=== PATIENT | male | born 1965 | race Two or more races ===

== ENCOUNTER 2020-10-25 11:20 | Outpatient (REF) | payer OTHER, SELFPAY ==
[2020-10-25 12:32] LABS: MANUAL DIFF FLAG NO
[2020-10-25 12:42] LABS: Basophils Percent Auto 0.5 % (0-2); Eosinophils Absolute Auto 0.4 X10*3/uL (0.0-0.4); Eosinophils Percent Auto 5.7 % (0-4); Hematocrit 42.3 % (42-52); Hemoglobin 14.4 g/dl (14.0-18.0); Imm Gran Abs Auto 0.01 X10*3/uL (0.00-0.03); Imm Gran Pct Auto 0.2 % (0.0-0.4); Lymphocytes Absolute Auto 2.7 X10*3/uL (1.2-4.9); Lymphocytes Percent Auto 41.7 % (20-40); Mean Corpuscular Hemoglobin 30.1 pg (27.0-33.0); Mean Corpuscular Volume 88.3 fL (80-98); Mean Platelet Volume 11.4 fL (9.4-12.4); Monocytes Absolute Auto 0.6 X10*3/uL (0.1-1.2); Monocytes Percent Auto 8.8 % (2-11); Neutrophils Absolute Auto 2.8 X10*3/uL (2.0-8.3); Neutrophils Percent Auto 43.1 % (45-73); Platelet Count 266 X10*3/uL (160-400); Red Blood Count 4.79 X10*6/uL (4.60-5.80); Red Cell Distribution Width 13.5 % (11.0-16.0); White Blood Count 6.5 X10*3/uL (4.8-10.8)
[2020-10-25 13:12] LABS: Alanine Aminotransferase 17 U/L (0-40); Albumin Level 3.9 g/dL (3.5-5.0); Alkaline Phosphatase 64 U/L (39-117); Anion Gap 11 (12-20); Aspartate Amino Transferase 14 U/L (5-37); Bilirubin Total 0.5 mg/dL (0.0-1.0); Blood Urea Nitrogen 16 mg/dL (9-16); Calcium 8.9 mg/dL (8.4-10.2); Carbon Dioxide 30 mmol/L (22-29); Chloride 101 mmol/L (96-108); Cholesterol 142 mg/dL; Estimated Glomerular Filt Rate > 60; Glucose Fasting 108 mg/dL (60-99); HDL Cholesterol 46 mg/dL; LDL Cholesterol Calculated 80 mg/dl; Potassium 4.7 mmol/l (3.3-5.1); Sodium 137 mmol/L (135-145); Total Protein 6.9 g/dL (6.5-8.0); Triglycerides 82 mg/dL
[2020-10-25 13:18] LABS: Estimated Average Glucose 134 mg/dL; Hemoglobin A1c % 6.3 %
[2020-10-25 13:34] LABS: Prostate Specific Antigen 2.87 ng/mL (<0.05-4.0)
== END 2020-10-25 11:21 | disposition home or self-care (01) ==
LOC: HO.LAB 11:20
PROVIDERS: PCP Physician Assistant; Visit Provider Physician Assistant
DX: Z12.5 Encounter for screening for malignant neoplasm of prostate (principal); E11.9 Type 2 diabetes mellitus without complications; I10 Essential (primary) hypertension
CPT/HCPCS: 36415; 80053; 80061; 83036; 84153; 85025

== ENCOUNTER 2021-10-10 11:18 | Outpatient (REF) | payer OTHER, SELFPAY ==
[2021-10-10 12:15] LABS: Hematocrit 43.9 % (42.0-52.0); Hemoglobin 14.8 g/dl (14.0-18.0); Mean Corpuscular HGB Conc 33.7 g/dl (31.0-36.0); Mean Corpuscular Hemoglobin 29.4 pg (27.0-33.0); Mean Corpuscular Volume 87.3 fL (80.0-98.0); Mean Platelet Volume 11.2 fL (9.4-12.4); Platelet Count 266 X10*3/uL (160-400); Red Blood Count 5.03 X10*6/uL (4.60-5.80); Red Cell Distribution Width 13.7 % (11.0-16.0); White Blood Count 6.6 X10*3/uL (4.8-10.8)
[2021-10-10 12:51] LABS: Estimated Average Glucose 140 mg/dL; Hemoglobin A1c % 6.5 %
[2021-10-10 12:57] LABS: Creatinine Urine 105.77 mg/dL; Microalbumin Urine < 5.0 mg/L
[2021-10-10 13:00] LABS: Alanine Aminotransferase 22 U/L (0-40); Albumin Level 4.4 g/dL (3.5-5.0); Alkaline Phosphatase 71 U/L (39-117); Anion Gap 9 (12-20); Aspartate Amino Transferase 17 U/L (5-37); Blood Urea Nitrogen 16 mg/dL (9-16); Calcium 9.9 mg/dL (8.4-10.2); Carbon Dioxide 29 mmol/L (22-29); Chloride 104 mmol/L (96-108); Cholesterol 160 mg/dL; Estimated Glomerular Filt Rate > 60; Glucose Fasting 113 mg/dL (60-99); HDL Cholesterol 43 mg/dL; LDL Cholesterol Calculated 104 mg/dl; Potassium 4.4 mmol/L (3.3-5.1); Sodium 138 mmol/L (135-145); Total Protein 7.6 g/dL (6.5-8.0); Triglycerides 69 mg/dL
[2021-10-10 13:18] LABS: Prostate Specific Antigen Scr 2.51 ng/mL (<0.05-4.0); TSH reflex Free T4 0.97 uIU/mL (0.32-4.0)
== END 2021-10-10 11:19 | disposition home or self-care (01) ==
LOC: HO.LAB 11:18
PROVIDERS: PCP Physician Assistant; Visit Provider Physician Assistant
DX: Z12.5 Encounter for screening for malignant neoplasm of prostate (principal); I10 Essential (primary) hypertension; E11.9 Type 2 diabetes mellitus without complications
CPT/HCPCS: 36415; 80053; 80061; 82043; 83036; 84153; 84443; 85027

== ENCOUNTER 2023-06-14 15:01 | Outpatient (AMB) | payer OTHER, SELFPAY ==
[2023-06-14 15:02] VITALS: BP 130/82; PULSE 88; O2SAT 97; BMI 27.8
--- NOTE | 2023-06-14 15:02 | MHC.PC.OV ---
Vital Signs 06/14/23 15:02 Height 5 ft 8 in Weight 183 lb BMI 27.8 BP 130/82 Blood Pressure Location Lt brachial Position Sitting Pulse 88 Pulse Source Pulse Oximeter Pulse Oximetry (%) 97 Oxygen Delivery Method Room Air Intake Visit Reasons: 6m follow up Court Attendant Required: Yes Accompanied by: Self / Same As Patient Allergies acetaminophen [From Tylenol] Allergy (Severe, Verified 06/14/23 15:15) RASH,DIZZINESS aspirin [Aspirin] Allergy (Intermediate, Verified 06/14/23 15:15) RASH dextromethorphan [From NyQuil] Allergy (Unknown, Verified 06/14/23 15:15) Unknown doxylamine [From NyQuil] Allergy (Unknown, Verified 06/14/23 15:15) Unknown pseudoephedrine [From SUDAFED] Allergy (Unknown, Verified 06/14/23 15:15) UNKNOWN MEDICATION DYES Allergy (Unknown, Uncoded 12/02/22 16:03) Unknown Medication List - Last Reconciled 06/14/23 by Anthony Ann PA-C acetic acid 2% 4 drps otic (ear) left TID 30 days cholecalciferol (vitamin D3) (Vitamin D3) 25 mcg PO DAILY diclofenac sodium 1% (Arthritis Pain (diclofenac)) 2 grams topical QID PRN ibuprofen 600 mg PO TID PRN 10 days ketoconazole 2% 1 appl topical DAILY 30 days losartan 50 mg PO DAILY metformin 1,000 mg PO BID 90 days tizanidine 2 mg PO BEDTIME PRN triamcinolone acetonide 0.1% 1 appl topical DAILY 30 days Tobacco use date assessed: 06/14/23 Dental Screening Dental Screen Date: 06/14/23 Did you have a dental visit in the last 12 months?: No Did you have a dental problem in the last 6 months where you did not have access to dental care?: No Was dental information given to patient?: No HPI 6m follow up HPI Details Patient is a 57-year-old male here today for follow-up visit. Patient has a past medical history significant for hypertension, type 2 diabetes, sensorineural hearing loss. Concerns-> reports over the last 2 months having issues with sleep due to getting up at night 3-4 times having to urinate. He believes is due to his diabetic medications though denies being very any polydipsia. A1c stable. More likely related to enlarging and prostate thus will start tamsulosin. Will check PSA to evaluate for elevation. Hypertension: Blood pressure acceptable today in office, patient denies any chest discomfort, dizziness, vision issues or headaches. Type 2 diabetes: Patient continues on metformin a 1000 b.i.d. and A1c is stable at 6.4. [facility] Surgical History History of inguinal hernia repair Family History Father Lung cancer Mother No problems noted. Family/Other Arthritis Hypertension Brother No problems noted. Daughter No problems noted. Sister No problems noted. Social History Housing: House Alcohol intake: never Patient Tobacco Use Status: Never used Tobacco e-Cigarette/Vaping Use: Never Used Second Hand Smoke Exposure: No Current occupational status: employed Current occupational exposures/hazards: No Cognitive needs: No Hearing needs: No Vision needs: No Questionnaire PHQ-9 Over the last 2 weeks, how often have you been bothered by any of the following problems? 1. Little interest or pleasure in doing things: not at all 2. Feeling down, depressed, or hopeless: not at all 3. Trouble falling or staying asleep, or sleeping too much: not at all 4. Feeling tired or having little energy: not at all 5. Poor appetite or overeating: not at all 6. Feeling bad about yourself - or that you are a failure or have let yourself or your family down: not at all 7. Trouble concentrating on things, such as reading the newspaper or watching television: not at all 8. Moving or speaking so slowly that other people could have noticed. Or the opposite - being so fidgety or restless that you have been moving around a lot more than usual: not at all 9. Thoughts that you would be better off or of hurting yourself in some way: not at all Total score: 0 Depression Screening Interpretation: Negative 61425 - PHQ-9 Billing: Yes Source: Developed by Drs. Naeem Mckeon, Peace Priest, Hasmukh Veras and colleagues, with an educational sarah from [employer]. Thrive Questionnaire Date Thrive assessed: 06/14/23 I am a: Patient What is your living situation today?: I have a steady place to live Within the past 12 months, did the food you bought not last and you didn't have the money to get more?: Never true Within the past 12 months, did you worry whether your food would run out before you got money to buy more?: Never true Do you have trouble paying for medicines?: No Do you have trouble getting transportation to medical appointments?: No Do you have trouble paying your heating and electricity bill?: No Do you have trouble taking care of your child, family member or friend?: No Do you have trouble with day-to-day activities such as bathing, preparing meals, shopping, managing finances, etc.?: No Are you currently unemployed and looking for a job?: No Are you interested in more education?: No Please select the resources that you would like help with: None Currently or been in a relationship where the following occur: no concerns reported AUDIT C Alcohol Use Questionnaire (AUDIT-C) 1. How often do you have a drink containing alcohol?: Never 3. How often do you have six or more drinks on one occasion?: Never Total Score: 0 KEL-7 AMB Questionnaire KEL-7 Date KEL - 7 assessed: 06/14/23 Feeling nervous, anxious, or on edge: 0 = Not at all Not being able to stop or control worryin = Not at all Worrying too much about different things: 0 = Not at all Trouble relaxin = Not at all Being so restless that it is hard to sit still: 0 = Not at all Becoming easily annoyed or irritable: 0 = Not at all Feeling afraid as if something awful might happen: 0 = Not at all Total KEL-7 score (0-4 normal; 5-9 mild; 10-14 moderate; 15-21 severe): 0 Source: Developed by Drs. Naeem Mckeon, Peace Priest, Hasmukh Veras and colleagues, with an educational sarah from [employer]. KEL-7 Assessment Billing KEL-7 Assessment Tool: KEL-7 Assessment 30762 Review of Systems Const Denies headache(s) Eyes Denies loss of vision ENT Denies vertigo, Denies dizziness, Denies headache(s) and Denies sore throat Card Denies chest pain, Denies leg edema and Denies lightheadedness Resp Denies cough, Denies hemoptysis and Denies wheezing GI Denies abdominal pain, Denies melena, Denies constipation, Denies diarrhea and Denies vomiting Denies dysuria, Denies urinary frequency and Denies urinary urgency Musc Denies arthralgias, Denies joint swelling, Denies numbness and Denies tingling Neuro Denies Abnormal speech present, Denies behavioral changes, Denies vertigo, Denies dizziness, Denies headache(s), Denies loss of vision, Denies memory loss, Denies numbness and Denies tingling Psych Denies anxiety, Denies behavioral changes, Denies depression, Denies memory loss and Denies panic attacks Kd/Lymph Denies easy bleeding and Denies easy bruising Aller/Immun Denies wheezing Physical exam (Primary Care) Vital Signs: Last Vital Signs Pulse 88 06/14/23 15:02 BP 130/82 06/14/23 15:02 Pulse Ox 97 06/14/23 15:02 Oxygen Delivery Method Room Air 06/14/23 15:02 BMI result Body Mass Index 27.8 Tobacco/Smoking Status: Tobacco use Status Tobacco use date assessed 06/14/23 06/14/23 15:11 Patient Tobacco Use Status Never used Tobacco 06/14/23 15:11 Tobacco use type 01/13/22 15:12 e-Cigarette/Vaping Use Never Used 06/14/23 15:11 PHQ-9: PHQ-9 Score PHQ-9: Total score 0 06/14/23 15:25 Depression Screening Interpretation: Negative Thrive Assessment: Date of Thrive Assessment Date Thrive assessed 06/14/23 06/14/23 15:11 Currently or been in a relationship where the following occur: no concerns reported Const General: healthy appearing, no acute distress, alert and awake Nutritional Appearance: well nourished Orientation/consciousness: oriented to person, oriented to place and oriented to time HENMT Ears: TM's normal bilaterally General nose exam: Normal nasal mucous membranes and turbinates present Eyes Conjunctivae: conjunctivae normal Sclerae: sclerae normal Pupils: Equal, round and reactive pupils present Neck Neck: Yes no lymphadenopathy and Yes no JVD Thyroid: Thyroid normal Carotids: no bruits Resp Effort & Inspection: normal respiratory effort and not tachypneic Auscultation: no crackles, no rales, no rhonchi and no wheezes Cardio Rate: regular rate Rhythm: regular rhythm Heart sounds: no murmurs and normal S1 and S2 GI Palpation (GI): Soft to palpation, nontender, no hepatomegaly and no splenomegaly Auscultation: normal bowel sounds Skin General skin exam: no rashes or lesions noted and dry skin Neuro General: oriented to person, oriented to place and oriented to time Cranial nerves: Yes Equal, round and reactive pupils present Speech: No Abnormal speech present Gait exam (Neuro): Normal gait present Motor exam (neuro): no tremor noted Extrem Right upper extremity: full ROM Left upper extremity: full ROM Right lower extremity: full ROM; no edema Left lower extremity: full ROM; no edema Psych Mental Status: mental status grossly normal Speech and movement: Normal speech and movement present Affect: normal affect Attitude: cooperative Thought process: Normal thought process present Results AMB Hemoglobin A1c AMB Hemoglobin A1c 6.4 % Last Edit by Roosevelt Snow on 06/14/23 15:26 Results Reviewed Results Reviewed: Laboratory Last Values Hgb A1c (Clinic) 6.4 % (4.0-6.0) H 06/14/23 15:05 Assessment and Plan Assessment & Plan (1) HTN (hypertension): Code(s): I10 - Essential (primary) hypertension Qualifiers: Hypertension type: essential hypertension Qualified Code(s): I10 - Essential (primary) hypertension Plan: Blood pressure acceptable today in office, will continue his current dose of antihypertensive medication with goal blood pressure to be below 140/90 (2) DMII (diabetes mellitus, type 2): Code(s): E11.9 - Type 2 diabetes mellitus without complications Qualifiers: Diabetes mellitus complication status: without complication 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 Will try to reestablish care with an executive coach for an eye exam. Goal A1c is to remain below 7.0 (3) BPH associated with nocturia: Code(s): N40.1 - Benign prostatic hyperplasia with lower urinary tract symptoms; R35.1 - Nocturia Plan: Patient reporting nocturia likely secondary to BPH. Will supply patient with Flomax to help empty bladder and reduce nocturia. Will consider finasteride if not effective. Will check a PSA at next lab draw. (4) Tinea: Code(s): B35.9 - Dermatophytosis, unspecified Plan: Reports having an itchy rash in his groin and will supply patient with antifungal topical treatment. Orders: Orders AMB Hemoglobin A1c 06/14/23 E11.9 - Type 2 diabetes mellitus without complications Referrals Ophthalmology Referral E11.9 - Type 2 diabetes mellitus without complications Medications: New tamsulosin 0.4 mg PO DAILY 90 days 90 caps 1RF N40.1 - Benign prostatic hyperplasia with lower urinary tract symptoms, R35.1 - Nocturia Refilled ketoconazole 2% 1 appl topical DAILY 30 days 60 grams 0RF B35.9 - Dermatophytosis, unspecified Coding Level of Care Code Est Pt Level 4 (67422) Diagnoses HTN (hypertension) I10 Hypertension type: essential hypertension DMII (diabetes mellitus, type 2) E11.9 Diabetes mellitus complication status: without complication 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
== END 2023-06-14 15:33 | disposition home or self-care (01) ==
PROVIDERS: PCP Physician Assistant; Visit Provider Physician Assistant
DX: I10 Essential (primary) hypertension (principal); E11.9 Type 2 diabetes mellitus without complications; N40.1 Benign prostatic hyperplasia with lower urinary tract symptoms; R35.1 Nocturia; B35.9 Dermatophytosis, unspecified
CPT/HCPCS: 83036; 99214

== ENCOUNTER 2023-07-17 12:23 | Outpatient (AMB) | payer OTHER, SELFPAY ==
--- NOTE | 2023-07-17 14:18 | AM.OFFWIN_ITS ---
Intake Vital Signs 07/17/23 14:18 Height 5 ft 8 in Intake Visit Reasons: EP LT ear Concern Intake Note: pt is here for c/o bilateral ear itchiness Patient Tobacco Use Status: Never used Tobacco Allergies acetaminophen [From Tylenol] Allergy (Severe, Verified 07/17/23 14:26) RASH,DIZZINESS aspirin [Aspirin] Allergy (Intermediate, Verified 07/17/23 14:26) RASH dextromethorphan [From NyQuil] Allergy (Unknown, Verified 07/17/23 14:26) Unknown doxylamine [From NyQuil] Allergy (Unknown, Verified 07/17/23 14:26) Unknown pseudoephedrine [From SUDAFED] Allergy (Unknown, Verified 07/17/23 14:26) UNKNOWN MEDICATION DYES Allergy (Unknown, Uncoded 12/02/22 16:03) Unknown Do you need a note to return to daycare/school/sports/work: No HPI EP LT ear Concern HPI Details Patient is a 58-year-old male comes to the walk-in clinic complaining of itchy ears, left greater than right. He states that he has had this in the past and he needed his ear wax irrigated to resolve his symptoms. He denies recent cold or allergies, fever or chills, hearing difficulty, discharge from the ear, nausea vomiting or diarrhea, runny nose or sore throat, dizziness or headache, or other significant associated symptoms. Reviewed past medical history with the patient [facility] Surgical History History of inguinal hernia repair Family History Father Lung cancer Mother No problems noted. Family/Other Arthritis Hypertension Brother No problems noted. Daughter No problems noted. Sister No problems noted. Social History Housing: House Alcohol intake: never Patient Tobacco Use Status: Never used Tobacco e-Cigarette/Vaping Use: Never Used Second Hand Smoke Exposure: No Current occupational status: employed Current occupational exposures/hazards: No Cognitive needs: No Hearing needs: No Vision needs: No Review of Systems Const All systems reviewed & are unremarkable except as noted in HPI and below Physical Exam Const General: cooperative, healthy appearing, comfortable, no acute distress, alert, awake, Physically active and well groomed; No anxious, diaphoretic, ill appearing, intoxicated appearing, poor hygiene or tired appearing Nutritional Appearance: average body habitus Limitations: no limitations HEENT Head: Yes normal to inspection, Yes normocephalic and Yes atraumatic Ears: hearing grossly normal bilaterally, Abnormal EAC present excessive cerumen (Not impacted) and TM abnormal dull and wth effusion; not bulging and not erythematous General nose exam: Normal external nose present, Normal nares present, No nasal polyps present, Normal nasal mucous membranes and turbinates present, Normal septum present and No nasal discharge present Face and sinus: Yes normal facial exam, Yes sinuses nontender and Yes face symmetric Resp Effort & Inspection: normal respiratory effort Cardio Rate: regular rate Rhythm: regular rhythm Skin Other: Good color, warm and dry Psych Appearance: grossly normal Mental Status: mental status grossly normal Speech and movement: Normal speech and movement present Affect: normal affect Attitude: cooperative Thought process: Normal thought process present Insight: Good insight present (Psych) Judgement: Good judgement present (Psych) Office Procedures Cerumen Removal From which ear canal was the cerumen removed: bilateral Removal: irrigation and otoscope w/curette Notes: patient tolerated procedure well, no complications (Nausea and retching, but patient requested completing procedure) and ear canal clear [id number] Wax Removal by Spoon/Curette Assessment & Plan Assessment & Plan (1) Otitis externa: Code(s): H60.90 - Unspecified otitis externa, unspecified ear Plan: Patient with moderate cerumen to the bilateral ear canals, which he apparently is very sensitive to. His ear canals were irrigated today per her his request, which helped to relieve some of his symptoms, however he did not tolerate the procedure well and he became nauseous with some retching. He did state that he was pleased to have the ears irrigated as this had resolved his itchy ear canals in the past. He did have some serous otitis, and we discussed oral allergy medication, however he apparently has an allergy listed for this class of medication. He does not have any erythema or TM changes suggesting otitis media at this time, but he will monitor for fever or chills, ear pain, or other significant associated symptoms. He will follow-up as needed. Coding Level of Care Code Est Pt Level 4 (31635) Diagnoses Otitis externa H60.90 CPT Codes Office Procedure - CPT: 22714-Bgj Wax Removal by Spoon/Curette ([id number])
== END 2023-07-17 15:34 | disposition home or self-care (01) ==
PROVIDERS: PCP Physician Assistant; Visit Provider Physician Assistant Medical
DX: H60.93 Unspecified otitis externa, bilateral (principal); H61.23 Impacted cerumen, bilateral
CPT/HCPCS: 69210; 99051; 99214

== ENCOUNTER 2023-12-15 14:08 | Outpatient (AMB) | payer OTHER, SELFPAY ==
[2023-12-15 14:26] VITALS: BP 138/84; PULSE 90; O2SAT 97; BMI 27.9
--- NOTE | 2023-12-15 14:26 | A.OFFPC_ITS ---
Vital Signs 12/15/23 14:26 Height 5 ft 8 in Weight 183 lb 4 oz BMI 27.9 BP 138/84 Blood Pressure Location Lt brachial Position Sitting Pulse 90 Pulse Source Pulse Oximeter Pulse Oximetry (%) 97 Oxygen Delivery Method Room Air Intake Visit Reasons: PE Intake Note: The patient is present today for a physical examination. The patient's current concern is bilateral ear itching and hearing loss, and they are requesting a referral ENT. Card Mounter Required: No Accompanied by: Self / Same As Patient Allergies acetaminophen [From Tylenol] Allergy (Severe, Verified 12/15/23 14:41) RASH,DIZZINESS aspirin [Aspirin] Allergy (Intermediate, Verified 12/15/23 14:41) RASH dextromethorphan [From NyQuil] Allergy (Unknown, Verified 12/15/23 14:41) Unknown doxylamine [From NyQuil] Allergy (Unknown, Verified 12/15/23 14:41) Unknown pseudoephedrine [From SUDAFED] Allergy (Unknown, Verified 12/15/23 14:41) UNKNOWN MEDICATION DYES Allergy (Unknown, Uncoded 12/15/23 14:37) Unknown Medication List - Last Reconciled 12/15/23 by Anthony Ann PA-C cholecalciferol (vitamin D3) (Vitamin D3) 25 mcg PO DAILY diclofenac sodium 1% (Arthritis Pain (diclofenac)) 2 grams topical QID PRN ibuprofen 600 mg PO TID PRN 10 days ketoconazole 2% 1 appl topical DAILY 30 days losartan 50 mg PO DAILY metformin 1,000 mg PO BID 90 days tamsulosin 0.4 mg PO DAILY 90 days tizanidine 2 mg PO BEDTIME PRN triamcinolone acetonide 0.1% 1 appl topical DAILY 30 days Tobacco use date assessed: 12/15/23 Dental Screening Dental Screen Date: 12/15/23 Did you have a dental visit in the last 12 months?: No Did you have a dental problem in the last 6 months where you did not have access to dental care?: Yes Was dental information given to patient?: Yes HPI PE HPI Details Patient is a 58-year-old male here today for follow-up visit. Patient has a past medical history significant for hypertension, type 2 diabetes, sensorineural hearing loss. Concerns-> has been suffering with erectile dysfunction and has been on Cialis in the past which have been helpful. He also reports he has been having decreased hearing in bilateral ears. Also having bilateral ear itch. Hypertension: Blood pressure acceptable today in office, patient denies any chest discomfort, dizziness, vision issues or headaches. Type 2 diabetes: Patient continues on metformin a 1000 b.i.d. and A1c is stable . .. Colon cancer screening: Had colonoscopy in 2013 normal, now willing to do Cologuard. Vaccines: Up-to-date with COVID vaccine, tetanus vaccine, declines flu and pneumonia vaccines. Laboratory Tests 10/10/21 07/13/22 12/02/22 11:33 16:08 15:49 Fasting Glucose 113 H Hemoglobin A1c % 6.5 Hgb A1c (Clinic) 6.4 H 6.3 H Cholesterol 160 LDL Cholesterol, C alc 104 06/14/23 12/15/23 15:05 14:17 Fasting Glucose Hemoglobin A1c % Hgb A1c (Clinic) 6.4 H 6.8 H Cholesterol LDL Cholesterol, C alc PFSH Surgical History History of inguinal hernia repair Family History Father Lung cancer Mother No problems noted. Family/Other Arthritis Hypertension Brother No problems noted. Daughter No problems noted. Sister No problems noted. Social History Housing: House Alcohol intake: never Patient Tobacco Use Status: Never used Tobacco e-Cigarette/Vaping Use: Never Used Second Hand Smoke Exposure: No Current occupational status: employed Current occupational exposures/hazards: No Cognitive needs: No Hearing needs: No Vision needs: No Questionnaire PHQ-9 Over the last 2 weeks, how often have you been bothered by any of the following problems? 1. Little interest or pleasure in doing things: not at all 2. Feeling down, depressed, or hopeless: not at all 3. Trouble falling or staying asleep, or sleeping too much: not at all 4. Feeling tired or having little energy: not at all 5. Poor appetite or overeating: not at all 6. Feeling bad about yourself - or that you are a failure or have let yourself or your family down: not at all 7. Trouble concentrating on things, such as reading the newspaper or watching television: not at all 8. Moving or speaking so slowly that other people could have noticed. Or the opposite - being so fidgety or restless that you have been moving around a lot more than usual: not at all 9. Thoughts that you would be better off or of hurting yourself in some way: not at all Total score: 0 Depression Screening Interpretation: Negative Depression Screening Done: Yes 64692 - PHQ-9 Billing: Yes Source: Developed by Drs. Naeem Mckeon, Peace Priest, Hasmukh Veras and colleagues, with an educational sarah from [place]. Thrive Questionnaire Date Thrive assessed: 12/15/23 I am a: Patient What is your living situation today?: I have a steady place to live Within the past 12 months, did the food you bought not last and you didn't have the money to get more?: Never true Within the past 12 months, did you worry whether your food would run out before you got money to buy more?: Never true Do you have trouble paying for medicines?: No Do you have trouble getting transportation to medical appointments?: No Do you have trouble paying your heating and electricity bill?: No Do you have trouble taking care of your child, family member or friend?: No Do you have trouble with day-to-day activities such as bathing, preparing meals, shopping, managing finances, etc.?: No Are you currently unemployed and looking for a job?: No Are you interested in more education?: No Please select the resources that you would like help with: None AUDIT C Alcohol Use Questionnaire (AUDIT-C) 1. How often do you have a drink containing alcohol?: Never 3. How often do you have six or more drinks on one occasion?: Never Total Score: 0 KEL-7 AMB Questionnaire KEL-7 Date KEL - 7 assessed: 12/15/23 Feeling nervous, anxious, or on edge: 0 = Not at all Not being able to stop or control worryin = Not at all Worrying too much about different things: 0 = Not at all Trouble relaxin = Not at all Being so restless that it is hard to sit still: 0 = Not at all Becoming easily annoyed or irritable: 0 = Not at all Feeling afraid as if something awful might happen: 0 = Not at all Total KEL-7 score (0-4 normal; 5-9 mild; 10-14 moderate; 15-21 severe): 0 Source: Developed by Drs. Naeem Mckeon, Peace Priest, Hasmukh Veras and colleagues, with an educational sarah from [place]. KEL-7 Assessment Billing KEL-7 Assessment Tool: KEL-7 Assessment 13229 Review of Systems Const Denies body aches, Denies chills, Denies excessive sweating, Denies fatigue, Denies fever(s) and Denies headache(s) Eyes Denies blurry vision ENT Denies dysphagia, Denies vertigo, Denies dizziness, Denies headache(s), Denies hearing loss and Denies tinnitus Card Denies chest pain, Denies chest pain with activity, Denies syncope, Denies i rregular heart rhythm and Denies dyspnea Resp Denies chest congestion, Denies cough, Denies hemoptysis, Denies dyspnea and Denies wheezing GI Denies abdominal pain, Denies melena, Denies hematochezia, Denies coffee ground emesis, Denies dysphagia, Denies diarrhea, Denies nausea and Denies vomiting Denies difficulty urinating, Denies dysuria, Denies urinary frequency, Denies urinary hesitancy and Denies urinary urgency Musc Denies arthralgias, Denies limited range of motion, Denies muscle cramps and Denies muscle weakness Skin/Breast Denies rash and Denies skin ulcer Neuro Denies Abnormal speech present, Denies confusion, Denies vertigo, Denies dizziness, Denies syncope, Denies headache(s), Denies memory loss and Denies seizure-like activity Psych Denies anxiety, Denies confusion, Denies depression, Denies memory loss, Denies panic attacks and Denies paranoia Endo Denies excessive sweating, Denies fatigue, Denies flushing, Denies polydipsia and Denies polyuria Aller/Immun Denies wheezing Physical exam (Primary Care) Vital Signs: Last Vital Signs Pulse 90 12/15/23 14:26 BP 138/84 12/15/23 14:26 Pulse Ox 97 12/15/23 14:26 Oxygen Delivery Method Room Air 12/15/23 14:26 BMI result Body Mass Index 27.9 Tobacco/Smoking Status: Tobacco use Status Tobacco use date assessed 12/15/23 12/15/23 14:38 Patient Tobacco Use Status Never used Tobacco 12/15/23 14:26 Tobacco use type 01/13/22 15:12 e-Cigarette/Vaping Use Never Used 12/15/23 14:26 PHQ-9: PHQ-9 Score PHQ-9: Total score 0 12/15/23 14:33 Depression Screening Interpretation: Negative Thrive Assessment: Date of Thrive Assessment Date Thrive assessed 12/15/23 12/15/23 14:33 Const General: cooperative, comfortable, no acute distress, alert and awake; No confusion Orientation/consciousness: oriented to person, oriented to place, patient oriented x3 and No confusion HENMT Head: Yes normocephalic Ears: external ears normal and TM's normal bilaterally Face and sinus: No sinus tenderness Mouth: Normal oral and palatal mucosa present and tongue normal Teeth and gingiva: dentition normal and gingiva normal Throat: Yes posterior oropharynx normal, Yes tonsils normal and Yes uvula midline Eyes Conjunctivae: conjunctivae normal Sclerae: sclerae normal Pupils: Equal, round and reactive pupils present EOM: EOMs intact bilaterally Direct Ophthalmoscopy: No no photophobia Neck Neck: Yes no lymphadenopathy, No tender and Yes no JVD Thyroid: Thyroid normal Carotids: no bruits Chest Chest palpation & inspection: no tenderness Resp Effort & Inspection: normal respiratory effort, no audible wheezes, not labored and no stridor Auscultation: no crackles, no rales, no rhonchi and no wheezes Cardio Jugular venous distension: no JVD Rate: regular rate, not bradycardic and not tachycardic Rhythm: regular rhythm Bruits: no carotid bruits Peripheral pulses: Peripheral pulses 2+ throughout GI Inspection: Yes normal to inspection, No abdominal wall ecchymosis and No visible herniation Palpation (GI): Soft to palpation, nontender, no guarding, not rigid and No hepatosplenomegaly present Auscultation: normoactive bowel sounds General: Yes no CVA tenderness Back/Spine/Pelvis Back: no CVA tenderness and No back tenderness Cervical Spine: cervical ROM normal Thoracic/Lumbar Spine: thoracic and lumbar spine normal to inspection, straight leg raise negative bilaterally, No thoraco-lumbar ROM limited and No lumbar spinal tenderness Skin Lesions: no lesions Rashes: no rashes Wounds: no wounds Neuro General: oriented to person, oriented to place, patient oriented x3, CN's II-XI intact bilaterally and No confusion Cranial nerves: Yes Equal, round and reactive pupils present and Yes Normal accommodation reflex present Cognition (Neuro): normal cognition Speech: No Abnormal speech present Gait exam (Neuro): Normal gait present Motor exam (neuro): 5/5 motor strength present throughout Extrem Right upper extremity: full ROM; no cyanosis Left upper extremity: full ROM; no cyanosis Right lower extremity: no edema Left lower extremity: no edema Psych Appearance: grossly normal Mental Status: mental status grossly normal Affect: normal affect Attitude: cooperative Thought process: Normal thought process present Results AMB Hemoglobin A1c AMB Hemoglobin A1c 6.8 % Last Edit by KATHYA Serrano on 12/15/23 14:39 Results Reviewed Results Reviewed: Laboratory Last Values Hgb A1c (Clinic) 6.8 % (4.0-6.0) H 12/15/23 14:17 Assessment and Plan Assessment & Plan (1) Annual physical exam: Code(s): Z00.00 - Encounter for general adult medical examination without abnormal findings (2) DMII (diabetes mellitus, type 2): Code(s): E11.9 - Type 2 diabetes mellitus without complications Qualifiers: Diabetes mellitus [employer] insulin use: without [employer] use Diabetes mellitus complication status: without complication Qualified Code(s): E11.9 - Type 2 diabetes mellitus without complications Plan: Patient's type 2 diabetes well controlled on current dose of metformin. Goal A1c is to remain below 7.0 (3) HTN (hypertension): Code(s): I10 - Essential (primary) hypertension Qualifiers: Hypertension type: essential hypertension Qualified Code(s): I10 - Essential (primary) hypertension Plan: Patient's blood pressure acceptable today in office. Will continue his current dose of antihypertensive medication with goal blood pressure remain below 140/90 (4) Sensorineural hearing loss (SNHL) of both ears: Code(s): H90.3 - Sensorineural hearing loss, bilateral Plan: Physical exam without any cerumen impactions. Has been having trouble hearing and differentiating voices. Will send for hearing exam (5) Erectile dysfunction: Code(s): N52.9 - Male erectile dysfunction, unspecified Qualifiers: Erectile dysfunction type: unspecified Qualified Code(s): N52.9 - Male erectile dysfunction, unspecified Plan: Patient reports he is intermittently having erectile dysfunction issues. He was on Cialis in the past which have been helpful. Orders: Orders AMB Hemoglobin A1c Today E11.9 - Type 2 diabetes mellitus without complications Prostate Specific Antigen Scr Today I10 - Essential (primary) hypertension, Z12.5 - Encounter for screening for malignant neoplasm of prostate Comprehensive [place]. Panel Fast Today I10 - Essential (primary) hypertension Lipid Panel Today E11.9 - Type 2 diabetes mellitus without complications Microalbumin, Random (w Creat) Today I10 - Essential (primary) hypertension Complete Blood Count no Diff Today E11.9 - Type 2 diabetes mellitus without complications Referrals Speech and Hearing Referral H90.3 - Sensorineural hearing loss, bilateral Cologuard Test N52.9 - Male erectile dysfunction, unspecified, Z12.11 - Encounter for screening for malignant neoplasm of colon Medications: New tadalafil (Cialis) 5 mg PO DAILY 7 days 7 tabs 0RF N52.9 - Male erectile dysfunction, unspecified Coding Level of Care Code Est Pt Prev Care 40-64y(26230) Diagnoses Annual physical exam Z00.00 Type 2 diabetes mellitus without complication, without long-term current use of insulin E11.9 Diabetes mellitus [employer] insulin use: without halfway use Diabetes mellitus complication status: without complication Essential hypertension I10 Hypertension type: essential hypertension Sensorineural hearing loss (SNHL) of both ears H90.3 Erectile dysfunction, unspecified erectile dysfunction type N52.9 Erectile dysfunction type: unspecified Additional Codes KEL-7 Assessment Billing - KEL-7 Assessment Tool: KLE-7 Assessment 44618 ([id number])
== END 2023-12-15 14:56 | disposition home or self-care (01) ==
PROVIDERS: PCP Physician Assistant; Visit Provider Physician Assistant
DX: Z00.00 Encounter for general adult medical examination without abnormal findings (principal); E11.9 Type 2 diabetes mellitus without complications; I10 Essential (primary) hypertension; H90.3 Sensorineural hearing loss, bilateral; N52.9 Male erectile dysfunction, unspecified
CPT/HCPCS: 83036; 99396

== ENCOUNTER 2024-04-27 14:12 | Outpatient (REF) | payer OTHER, SELFPAY | END 2024-04-27 14:13 | disposition home or self-care (01) | LOC: HO.SH 14:12 | PROVIDERS: Visit Provider Physician Assistant | DX: Z01.118 Encounter for examination of ears and hearing with other abnormal findings (principal); H90.3 Sensorineural hearing loss, bilateral | CPT/HCPCS: 92557; 92567 ==

== ENCOUNTER 2024-06-20 15:44 | Outpatient (AMB) | payer OTHER, SELFPAY ==
[2024-06-20 15:55] VITALS: BP 150/100; PULSE 80; O2SAT 98; BMI 27.5
--- NOTE | 2024-06-20 15:55 | A.OFFPC_ITS ---
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 Language: Wolof Accompanied by: Self / Same As Patient Allergies acetaminophen [From Tylenol] Allergy (Severe, Verified 06/20/24 16:00) RASH,DIZZINESS aspirin [Aspirin] Allergy (Intermediate, Verified 06/20/24 16:00) RASH dextromethorphan [From NyQuil] Allergy (Unknown, Verified 06/20/24 16:00) Unknown doxylamine [From NyQuil] Allergy (Unknown, Verified 06/20/24 16:00) Unknown pseudoephedrine [From SUDAFED] Allergy (Unknown, Verified 06/20/24 16:00) UNKNOWN MEDICATION DYES Allergy (Unknown, Uncoded 06/20/24 16:00) Unknown Medication List - Last Reconciled 06/20/24 by Anthony Ann PA-C cholecalciferol (vitamin D3) (Vitamin D3) 25 mcg PO DAILY diclofenac sodium 1% (Arthritis Pain (diclofenac)) 2 grams topical QID PRN ibuprofen 600 mg PO TID PRN 10 days ketoconazole 2% 1 appl topical DAILY 30 days losartan 50 mg PO DAILY metformin 1,000 mg PO BID 90 days tadalafil (Cialis) 5 mg PO DAILY 7 days tamsulosin 0.4 mg PO DAILY 90 days tizanidine 2 mg PO BEDTIME PRN triamcinolone acetonide 0.1% 1 appl topical DAILY 30 days Tobacco use date assessed: 12/15/23 Dental Screening Dental Screen Date: 12/15/23 HPI 6 month f/u HPI Details Patient is a 58-year-old male here today for follow-up visit. Patient has a past medical history significant for hypertension, type 2 diabetes, sensorineural hearing loss. Concerns-> reports having some epigastric pain and morning nausea over the last several days. He is not taking any antacid medications at this point. Hypertension: Blood pressure elevated today in office, he reports he is somewhat worried about getting his license and citizenship to the [place]. Otherwise he denies any chest discomfort, dizziness, vision issues or headaches. Type 2 diabetes: Patient continues on metformin a 1000 b.i.d. and A1c is stable . Advised to get fasting labs done OLU Laboratory Tests 07/13/22 06/14/23 12/15/23 16:08 15:05 14:17 Hgb A1c (Clinic) 6.4 H 6.4 H 6.8 H PFSH Surgical History History of inguinal hernia repair Family History Father Lung cancer Mother No problems noted. Family/Other Arthritis Hypertension Brother No problems noted. Daughter No problems noted. Sister No problems noted. Social History Housing: House Alcohol intake: never Patient Tobacco Use Status: Never used Tobacco e-Cigarette/Vaping Use: Never Used Second Hand Smoke Exposure: No Current occupational status: employed Current occupational exposures/hazards: No Cognitive needs: No Hearing needs: No Vision needs: No Questionnaire Thrive Questionnaire Date Thrive assessed: 12/15/23 KEL-7 AMB Questionnaire KEL-7 Date KEL - 7 assessed: 12/15/23 Source: Developed by Drs. Naeem Mckeon, Peace Priest, Hasmukh Veras and colleagues, with an educational sarah from [employer]. Review of Systems Const Denies headache(s) Eyes Denies loss of vision ENT Denies vertigo, Denies dizziness, Denies headache(s) and Denies sore throat Card Denies chest pain, Denies leg edema and Denies lightheadedness Resp Denies cough, Denies hemoptysis and Denies wheezing GI Denies abdominal pain, Denies melena, Denies constipation, Denies diarrhea and Denies vomiting Denies dysuria, Denies urinary frequency and Denies urinary urgency Musc Denies arthralgias, Denies joint swelling, Denies numbness and Denies tingling Neuro Denies Abnormal speech present, Denies behavioral changes, Denies vertigo, Denies dizziness, Denies headache(s), Denies loss of vision, Denies memory loss, Denies numbness and Denies tingling Psych Denies anxiety, Denies behavioral changes, Denies depression, Denies memory loss and Denies panic attacks Kd/Lymph Denies easy bleeding and Denies easy bruising Aller/Immun Denies wheezing Physical exam (Primary Care) Vital Signs: Last Vital Signs Pulse 80 06/20/24 15:55 BP 150/100 H 06/20/24 15:55 Pulse Ox 98 06/20/24 15:55 Oxygen Delivery Method Room Air 06/20/24 15:55 BMI result Body Mass Index 27.5 Tobacco/Smoking Status: Tobacco use Status Tobacco use date assessed 12/15/23 06/20/24 15:58 Patient Tobacco Use Status Never used Tobacco 06/20/24 15:58 Tobacco use type 01/13/22 15:12 e-Cigarette/Vaping Use Never Used 06/20/24 15:58 Thrive Assessment: Date of Thrive Assessment Date Thrive assessed 12/15/23 06/20/24 15:58 Const General: healthy appearing, no acute distress, alert and awake Nutritional Appearance: well nourished Orientation/consciousness: oriented to person, oriented to place and oriented to time HENMT Ears: TM's normal bilaterally General nose exam: Normal nasal mucous membranes and turbinates present Eyes Conjunctivae: conjunctivae normal Sclerae: sclerae normal Pupils: Equal, round and reactive pupils present Neck Neck: Yes no lymphadenopathy and Yes no JVD Thyroid: Thyroid normal Carotids: no bruits Resp Effort & Inspection: normal respiratory effort and not tachypneic Auscultation: no crackles, no rales, no rhonchi and no wheezes Cardio Rate: regular rate Rhythm: regular rhythm Heart sounds: no murmurs and normal S1 and S2 GI Palpation (GI): Soft to palpation, nontender, no hepatomegaly and no splenomegaly Auscultation: normal bowel sounds Skin General skin exam: no rashes or lesions noted and dry skin Neuro General: oriented to person, oriented to place and oriented to time Cranial nerves: Yes Equal, round and reactive pupils present Speech: No Abnormal speech present Gait exam (Neuro): Normal gait present Motor exam (neuro): no tremor noted Extrem Right upper extremity: full ROM Left upper extremity: full ROM Right lower extremity: full ROM; no edema Left lower extremity: full ROM; no edema Psych Mental Status: mental status grossly normal Speech and movement: Normal speech and movement present Affect: normal affect Attitude: cooperative Thought process: Normal thought process present Results AMB Hemoglobin A1c AMB Hemoglobin A1c 6.7 % Last Edit by KATHYA Serrano on 06/20/24 16:05 Results Reviewed Results Reviewed: Laboratory Last Values Hgb A1c (Clinic) 6.7 % (4.0-6.0) H 06/20/24 16:05 Assessment and Plan Assessment & Plan (1) GERD (gastroesophageal reflux disease): Code(s): K21.9 - Gastro-esophageal reflux disease without esophagitis Qualifiers: Esophagitis presence: without esophagitis Qualified Code(s): K21.9 - Gastro-esophageal reflux disease without esophagitis Plan: Patient's signs and symptoms of epigastric pain and morning nausea most consistent with GERD. Will supply patient with omeprazole to use to reduce acid production stomach. Advised on reducing gastric irritant foods. (2) KEL (generalized anxiety disorder): Code(s): F41.1 - Generalized anxiety disorder Plan: Patient reports he has been having a little more anxiety as of late as he has been trying to get his citizenship to the [place]. Of note he did have a period of psychosis after his mother that resulted in a few day hospitalization for his psych issue. He is not able to read or write Montenegrin and he is having difficulty with passing the citizenship exam. Needs paperwork filled out for citizenship. (3) DMII (diabetes mellitus, type 2): Code(s): E11.9 - Type 2 diabetes mellitus without complications Qualifiers: Diabetes mellitus complication status: without complication Diabetes mellitus jail insulin use: without jail use Qualified Code(s): E11.9 - Type 2 diabetes mellitus without complications Plan: Patient's type 2 diabetes well controlled on current dose of metformin. Goal A1c is to remain below 7.0 (4) HTN (hypertension): Code(s): I10 - Essential (primary) hypertension Qualifiers: Hypertension type: essential hypertension Qualified Code(s): I10 - Essential (primary) hypertension Plan: Patient's blood pressure slightly elevated today in office. 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 He admits that he is taking losartan on a daily basis. Will continue his current dose of antihypertensive medication with goal blood pressure remain below 140/90 (5) Sensorineural hearing loss (SNHL) of both ears: Code(s): H90.3 - Sensorineural hearing loss, bilateral Plan: Physical exam with cerumen buildup in both ears. Will have him back in 2 weeks to remove cerumen. He did get a hearing exam and reports he had abnormal findings. Orders: Orders AMB Hemoglobin A1c 06/20/24 E11.9 - Type 2 diabetes mellitus without complications Medications: New omeprazole 20 mg PO DAILY 30 caps 2RF 30 days K21.9 - Gastro-esophageal reflux disease without esophagitis Changed From losartan 50 mg PO DAILY 90 tabs 1RF I10 - Essential (primary) hypertension To losartan 50 mg PO DAILY 90 tabs 3RF 90 days I10 - Essential (primary) hypertension Refilled metformin 1,000 mg PO BID 180 tabs 3RF 90 days E11.9 - Type 2 diabetes mellitus without complications Patient Instructions: Goal: Blood pressure to be below 140/90, A1c to remain below 7.0 Barriers: Ability to write or read Montenegrin, Adherence to physical activity and healthy eating habits Coding Level of Care Code Est Pt Level 4 (37577) Diagnoses Gastroesophageal reflux disease without esophagitis K21.9 Esophagitis presence: without esophagitis KEL (generalized anxiety disorder) F41.1 Type 2 diabetes mellitus without complication, without long-term current use of insulin E11.9 Diabetes mellitus complication status: without complication Diabetes mellitus jail insulin use: without jail use Essential hypertension I10 Hypertension type: essential hypertension Sensorineural hearing loss (SNHL) of both ears H90.3
== END 2024-06-20 17:01 | disposition home or self-care (01) ==
PROVIDERS: PCP Physician Assistant; Visit Provider Physician Assistant
DX: E11.9 Type 2 diabetes mellitus without complications (principal)
CPT/HCPCS: 83036; 99214

== ENCOUNTER 2024-07-04 15:07 | Outpatient (AMB) | payer OTHER, SELFPAY ==
[2024-07-04 15:30] VITALS: BP 140/90; PULSE 80; O2SAT 99; BMI 27.5
--- NOTE | 2024-07-04 15:30 | MHC.PC.OV ---
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 Language: [place] Accompanied by: Self / Same As Patient Allergies acetaminophen [From Tylenol] Allergy (Severe, Verified 07/04/24 15:31) RASH,DIZZINESS aspirin [Aspirin] Allergy (Intermediate, Verified 07/04/24 15:31) RASH dextromethorphan [From NyQuil] Allergy (Unknown, Verified 07/04/24 15:31) Unknown doxylamine [From NyQuil] Allergy (Unknown, Verified 07/04/24 15:31) Unknown pseudoephedrine [From SUDAFED] Allergy (Unknown, Verified 07/04/24 15:31) UNKNOWN MEDICATION DYES Allergy (Unknown, Uncoded 07/04/24 15:31) Unknown Tobacco use date assessed: 12/15/23 Dental Screening Dental Screen Date: 12/15/23 HPI Ear Flush HPI Details Patient is a 58-year-old male here today for a right ear cerumen impaction. Patient underwent ear flushing and tolerate patient will. Large amounts of cerumen dislodged. Still seems to have hearing loss. Would likely benefit from a new hearing exam. [facility] Surgical History History of inguinal hernia repair Family History Father Lung cancer Mother No problems noted. Family/Other Arthritis Hypertension Brother No problems noted. Daughter No problems noted. Sister No problems noted. Social History Housing: House Alcohol intake: never Patient Tobacco Use Status: Never used Tobacco e-Cigarette/Vaping Use: Never Used Second Hand Smoke Exposure: No Current occupational status: employed Current occupational exposures/hazards: No Cognitive needs: No Hearing needs: No Vision needs: No Questionnaire Thrive Questionnaire Date Thrive assessed: 12/15/23 KEL-7 AMB Questionnaire KEL-7 Date KEL - 7 assessed: 12/15/23 Source: Developed by Uriel Reaveset B.W. Cem, Hasmukh Veras and colleagues, with an educational sarah from [employer]. Review of Systems Const Denies headache(s) Eyes Denies loss of vision ENT Denies vertigo, Denies dizziness, Denies headache(s) and Denies sore throat Card Denies chest pain, Denies leg edema and Denies lightheadedness Resp Denies cough, Denies hemoptysis and Denies wheezing GI Denies abdominal pain, Denies melena, Denies constipation, Denies diarrhea and Denies vomiting Denies dysuria, Denies urinary frequency and Denies urinary urgency Musc Denies arthralgias, Denies joint swelling, Denies numbness and Denies tingling Neuro Denies Abnormal speech present, Denies behavioral changes, Denies vertigo, Denies dizziness, Denies headache(s), Denies loss of vision, Denies memory loss, Denies numbness and Denies tingling Psych Denies anxiety, Denies behavioral changes, Denies depression, Denies memory loss and Denies panic attacks Kd/Lymph Denies easy bleeding and Denies easy bruising Aller/Immun Denies wheezing Physical exam (Primary Care) Vital Signs: Last Vital Signs Pulse 80 07/04/24 15:30 BP 140/90 H 07/04/24 15:30 Pulse Ox 99 07/04/24 15:30 Oxygen Delivery Method Room Air 07/04/24 15:30 BMI result Body Mass Index 27.5 Tobacco/Smoking Status: Tobacco use Status Tobacco use date assessed 12/15/23 07/04/24 15:31 Patient Tobacco Use Status Never used Tobacco 07/04/24 15:31 Tobacco use type 01/13/22 15:12 e-Cigarette/Vaping Use Never Used 07/04/24 15:31 Thrive Assessment: Date of Thrive Assessment Date Thrive assessed 12/15/23 07/04/24 15:31 Const General: healthy appearing, no acute distress, alert and awake Nutritional Appearance: well nourished Orientation/consciousness: oriented to person, oriented to place and oriented to time HENMT Other: RIGHT EXTERNAL CANAL: CERUMEN IMPACTION, AFTER LAVAGE CLEAR . Ears: TM's normal bilaterally General nose exam: Normal nasal mucous membranes and turbinates present Eyes Conjunctivae: conjunctivae normal Sclerae: sclerae normal Pupils: Equal, round and reactive pupils present Neck Neck: Yes no lymphadenopathy and Yes no JVD Thyroid: Thyroid normal Carotids: no bruits Resp Effort & Inspection: normal respiratory effort and not tachypneic Auscultation: no crackles, no rales, no rhonchi and no wheezes Cardio Rate: regular rate Rhythm: regular rhythm Heart sounds: no murmurs and normal S1 and S2 GI Palpation (GI): Soft to palpation, nontender, no hepatomegaly and no splenomegaly Auscultation: normal bowel sounds Skin General skin exam: no rashes or lesions noted and dry skin Neuro General: oriented to person, oriented to place and oriented to time Cranial nerves: Yes Equal, round and reactive pupils present Speech: No Abnormal speech present Gait exam (Neuro): Normal gait present Motor exam (neuro): no tremor noted Extrem Right upper extremity: full ROM Left upper extremity: full ROM Right lower extremity: full ROM; no edema Left lower extremity: full ROM; no edema Psych Mental Status: mental status grossly normal Speech and movement: Normal speech and movement present Affect: normal affect Attitude: cooperative Thought process: Normal thought process present Office Procedures Cerumen Removal From which ear canal was the cerumen removed: right Removal: irrigation and otoscope w/curette Notes: patient tolerated procedure well and no complications [id number] Wax Removal by Spoon/Curette Assessment and Plan Assessment & Plan (1) Right ear impacted cerumen: Code(s): H61.21 - Impacted cerumen, right ear Plan: As per office procedure did tolerate procedure well. (2) Sensorineural hearing loss (SNHL) of both ears: Code(s): H90.3 - Sensorineural hearing loss, bilateral Plan: Will send for another hearing exam to evaluate for any recurrent sensorineural hearing loss now that cerumen has been disimpacted from right ear. Orders: Referrals Speech and Hearing Referral H90.3 - Sensorineural hearing loss, bilateral Coding Level of Care Code Est Pt Level 3 (35222) Diagnoses Right ear impacted cerumen H61.21 Sensorineural hearing loss (SNHL) of both ears H90.3 CPT Codes Office Procedure - CPT: 06841-Dse Wax Removal by Spoon/Curette ([id number])
== END 2024-07-04 16:33 | disposition home or self-care (01) ==
PROVIDERS: PCP Physician Assistant; Visit Provider Physician Assistant
DX: H61.21 Impacted cerumen, right ear (principal)
CPT/HCPCS: 69210; 99213

== ENCOUNTER 2024-09-25 13:58 | Outpatient (AMB) | payer OTHER, SELFPAY ==
[2024-09-25 14:07] VITALS: BP 152/96; PULSE 88; O2SAT 98; BMI 28.7
--- NOTE | 2024-09-25 14:07 | A.OFFPC_ITS ---
Vital Signs 09/25/24 14:07 Height 5 ft 8 in Weight 188 lb 8 oz BMI 28.7 BP 152/96 H Blood Pressure Location Lt brachial Position Sitting Pulse 88 Pulse Source Pulse Oximeter Pulse Oximetry (%) 98 Oxygen Delivery Method Room Air Intake Visit Reasons: health concern Food Beverage Supervisor Required: Yes Food Beverage Supervisor Language: Greek Accompanied by: Self / Same As Patient Allergies acetaminophen [From Tylenol] Allergy (Severe, Verified 09/25/24 14:09) RASH,DIZZINESS aspirin [Aspirin] Allergy (Intermediate, Verified 09/25/24 14:09) RASH dextromethorphan [From NyQuil] Allergy (Unknown, Verified 09/25/24 14:09) Unknown doxylamine [From NyQuil] Allergy (Unknown, Verified 09/25/24 14:09) Unknown pseudoephedrine [From SUDAFED] Allergy (Unknown, Verified 09/25/24 14:09) UNKNOWN MEDICATION DYES Allergy (Unknown, Uncoded 09/25/24 14:09) Unknown Medication List - Last Reconciled 09/25/24 by Anthony Ann PA-C cholecalciferol (vitamin D3) (Vitamin D3) 25 mcg PO DAILY diclofenac sodium 1% (Arthritis Pain (diclofenac)) 2 grams topical QID PRN ibuprofen 600 mg PO TID PRN 10 days ketoconazole 2% 1 appl topical DAILY 30 days losartan 50 mg PO DAILY 90 days metformin 1,000 mg PO BID 90 days omeprazole 20 mg PO DAILY 30 days tadalafil (Cialis) 5 mg PO DAILY 7 days tamsulosin 0.4 mg PO DAILY 90 days tizanidine 2 mg PO BEDTIME PRN triamcinolone acetonide 0.1% 1 appl topical DAILY 30 days Tobacco use date assessed: 12/15/23 Dental Screening Dental Screen Date: 12/15/23 HPI health concern HPI Details Patient is a 58-year-old male here today for a problem visit. Patient has a past medical history significant for hypertension, type 2 diabetes, sensorineural hearing loss. Concerns-> he reports having a lot more nocturia as of late. Was on tamsulosin in the past though was not taking this medication as he has ran out from the pharmacy and has never called for refill. He does have a history of BPH. Advised to get fasting labs including PSA done before upcoming annual physical. Hypertension: Blood pressure elevated today in office, he has not been taking losartan 50 mg as he reports he could not get them from the pharmacy. He also reports there is a yellow dye in the tablets that caused him allergy. Will transition to lisinopril 10 mg. Advised to monitor blood pressure at Otherwise he denies any chest discomfort, dizziness, vision issues or headaches. Type 2 diabetes: Patient continues on metformin a 1000 b.i.d. and A1c is stable [facility] Surgical History History of inguinal hernia repair Family History Father Lung cancer Mother No problems noted. Family/Other Arthritis Hypertension Brother No problems noted. Daughter No problems noted. Sister No problems noted. Social History Housing: House Alcohol intake: never Patient Tobacco Use Status: Never used Tobacco e-Cigarette/Vaping Use: Never Used Second Hand Smoke Exposure: No Current occupational status: employed Current occupational exposures/hazards: No Cognitive needs: No Hearing needs: No Vision needs: No Questionnaire Thrive Questionnaire Date Thrive assessed: 12/15/23 KEL-7 AMB Questionnaire KEL-7 Date KEL - 7 assessed: 12/15/23 Source: Developed by Drs. Naeem Mckeon, Peace Priest, Hasmukh Veras and colleagues, with an educational sarah from [employer]. Review of Systems Const Denies headache(s) Eyes Denies loss of vision ENT Denies vertigo, Denies dizziness, Denies headache(s) and Denies sore throat Card Denies chest pain, Denies leg edema and Denies lightheadedness Resp Denies cough, Denies hemoptysis and Denies wheezing GI Denies abdominal pain, Denies melena, Denies constipation, Denies diarrhea and Denies vomiting Denies dysuria, Reports urinary frequency and Denies urinary urgency Musc Denies arthralgias, Denies joint swelling, Denies numbness and Denies tingling Neuro Denies Abnormal speech present, Denies behavioral changes, Denies vertigo, Denies dizziness, Denies headache(s), Denies loss of vision, Denies memory loss, Denies numbness and Denies tingling Psych Denies anxiety, Denies behavioral changes, Denies depression, Denies memory loss and Denies panic attacks Kd/Lymph Denies easy bleeding and Denies easy bruising Aller/Immun Denies wheezing Physical exam (Primary Care) Vital Signs: Last Vital Signs Pulse 88 09/25/24 14:07 BP 152/96 H 09/25/24 14:07 Pulse Ox 98 09/25/24 14:07 Oxygen Delivery Method Room Air 09/25/24 14:07 BMI result Body Mass Index 28.7 Tobacco/Smoking Status: Tobacco use Status Tobacco use date assessed 12/15/23 09/25/24 14:08 Patient Tobacco Use Status Never used Tobacco 09/25/24 14:08 Tobacco use type 01/13/22 15:12 e-Cigarette/Vaping Use Never Used 09/25/24 14:08 Thrive Assessment: Date of Thrive Assessment Date Thrive assessed 12/15/23 09/25/24 14:08 Const General: healthy appearing, no acute distress, alert and awake Nutritional Appearance: well nourished Orientation/consciousness: oriented to person, oriented to place and oriented to time HENMT Ears: TM's normal bilaterally General nose exam: Normal nasal mucous membranes and turbinates present Eyes Conjunctivae: conjunctivae normal Sclerae: sclerae normal Pupils: Equal, round and reactive pupils present Neck Neck: Yes no lymphadenopathy and Yes no JVD Thyroid: Thyroid normal Carotids: no bruits Resp Effort & Inspection: normal respiratory effort and not tachypneic Auscultation: no crackles, no rales, no rhonchi and no wheezes Cardio Rate: regular rate Rhythm: regular rhythm Heart sounds: no murmurs and normal S1 and S2 GI Palpation (GI): Soft to palpation, nontender, no hepatomegaly and no splenomegaly Auscultation: normal bowel sounds Skin General skin exam: no rashes or lesions noted and dry skin Neuro General: oriented to person, oriented to place and oriented to time Cranial nerves: Yes Equal, round and reactive pupils present Speech: No Abnormal speech present Gait exam (Neuro): Normal gait present Motor exam (neuro): no tremor noted Extrem Right upper extremity: full ROM Left upper extremity: full ROM Right lower extremity: full ROM; no edema Left lower extremity: full ROM; no edema Psych Mental Status: mental status grossly normal Speech and movement: Normal speech and movement present Affect: normal affect Attitude: cooperative Thought process: Normal thought process present Office Procedures Flu Questionnaire Does the patient have a severe egg allergy?: No Immunizations Fluarix Triv [id number] (PF) 45 mcg (15 mcg x 3)/0.5 mL IM syringe Performing Provider: Anthony Ann PA-C [place] [facility] [facility] Documented (not given) by: KATHYA Serrano on 09/25/24 14:08 Reason Not Given: Patient Refused Coding Level of Care Code Est Pt Level 4 (76452) Diagnoses Essential hypertension I10 Hypertension type: essential hypertension Urinary frequency R35.0 Type 2 diabetes mellitus without complication, without long-term current use of insulin E11.9 Diabetes mellitus complication status: without complication Diabetes mellitus shelter insulin use: without technician terminal and repeater use Assessment & Plan Assessment & Plan (1) HTN (hypertension): Code(s): I10 - Essential (primary) hypertension Category: Medical Qualifiers: Hypertension type: essential hypertension Qualified Code(s): I10 - Essential (primary) hypertension Plan: Patient's blood pressure elevated today in office. He has not been taking losartan as he reports they are yellow color and he has an allergy to yellow dye. Will transition him to lisinopril 10 mg. Advised to monitor blood pressure with goal blood pressure to be below 140/90 (2) Urinary frequency: Code(s): R35.0 - Frequency of micturition Category: Medical Plan: Patient reports some urinary frequency particularly nocturia. Has not been on Flomax for quite some time. Will restart Flomax and sent for urinalysis to evaluate for an infectious etiology. Patient has yet to do labs including his PSA and promises to do them before his upcoming physical in November of 2024 (3) DMII (diabetes mellitus, type 2): Code(s): E11.9 - Type 2 diabetes mellitus without complications Category: Medical Qualifiers: Diabetes mellitus complication status: without complication Diabetes mellitus shelter insulin use: without technician terminal and repeater use Qualified Code(s): E11.9 - Type 2 diabetes mellitus without complications Plan: Patient's type 2 diabetes fairly controlled with current dose of metformin a 1000 b.i.d.. Goal A1c is to be below 7.0 Orders: Orders AMB Hemoglobin A1c 09/25/24 E11.9 - Type 2 diabetes mellitus without complications UA CC w/rflx Micro + Cult 09/25/24 R30.0 - Dysuria, R35.0 - Frequency of micturition Prostate Specific Antigen Scr 09/25/24 R35.0 - Frequency of micturition, Z12.5 - Encounter for screening for malignant neoplasm of prostate Influenza [id number] Immunization 09/25/24 Z23 - Encounter for immunization Medications: New lisinopril 10 mg PO DAILY 90 tabs 1RF 90 days I10 - Essential (primary) hypertension Refilled tamsulosin 0.4 mg PO DAILY 90 caps 1RF 90 days N40.1 - Benign prostatic hyperplasia with lower urinary tract symptoms, R35.1 - Nocturia Discontinued tizanidine Discontinued Reason: Doctor's Order 2 mg PO BEDTIME PRN 7 tabs 0RF muscle spasticity M79.601 - Pain in right arm losartan Discontinued Reason: Doctor's Order 50 mg PO DAILY 90 days 90 tabs 3RF I10 - Essential (primary) hypertension Patient Instructions: Goal: Blood pressure to be below 140/90 Barriers: Adherence to physical activity and healthy eating habits
== END 2024-09-25 14:21 | disposition home or self-care (01) ==
LOC: HO.HMCH 13:59
PROVIDERS: PCP Physician Assistant; Visit Provider Physician Assistant
DX: E11.9 Type 2 diabetes mellitus without complications (principal); I10 Essential (primary) hypertension; R35.0 Frequency of micturition

== ENCOUNTER → 2024-09-25 13:58 | Outpatient (BNVA) | payer OTHER, SELFPAY | PROVIDERS: PCP Physician Assistant; Visit Provider Physician Assistant | DX: I10 Essential (primary) hypertension (principal); N40.1 Benign prostatic hyperplasia with lower urinary tract symptoms; R35.1 Nocturia; R35.0 Frequency of micturition; E11.9 Type 2 diabetes mellitus without complications; Z79.84 Long term (current) use of oral hypoglycemic drugs; Z79.899 Other long term (current) drug therapy; Z28.21 Immunization not carried out because of patient refusal | CPT/HCPCS: 90471 ==

== ENCOUNTER 2024-12-19 15:46 | Outpatient (AMB) | payer OTHER, SELFPAY ==
--- NOTE | 2024-12-19 15:50 | MHC.PC.OV ---
Vital Signs 12/19/24 15:52 Height 5 ft 8 in Weight 191 lb BMI 29.0 BP 132/86 Blood Pressure Location Lt brachial Position Sitting Pulse 70 Pulse Source Pulse Oximeter Pulse Oximetry (%) 98 Oxygen Delivery Method Room Air Intake Visit Reasons: annual exam Intake Note: Patient here for an annual physical exam Pressfitter Required: No Accompanied by: Self / Same As Patient Allergies acetaminophen [From Tylenol] Allergy (Severe, Verified 12/19/24 15:59) RASH,DIZZINESS aspirin [Aspirin] Allergy (Intermediate, Verified 12/19/24 15:59) RASH dextromethorphan [From NyQuil] Allergy (Unknown, Verified 12/19/24 15:59) Unknown doxylamine [From NyQuil] Allergy (Unknown, Verified 12/19/24 15:59) Unknown pseudoephedrine [From SUDAFED] Allergy (Unknown, Verified 12/19/24 15:59) UNKNOWN MEDICATION DYES Allergy (Unknown, Uncoded 12/19/24 15:59) Unknown Yellow dye Adverse Reaction (Intermediate, Uncoded 12/19/24 16:11) Rash Medication List - Last Reconciled 12/19/24 by Anthony Ann PA-C cholecalciferol (vitamin D3) (Vitamin D3) 25 mcg PO DAILY diclofenac sodium 1% (Arthritis Pain (diclofenac)) 2 grams topical QID PRN ibuprofen 600 mg PO TID PRN 10 days ketoconazole 2% 1 appl topical DAILY 30 days lisinopril 10 mg PO DAILY 90 days metformin 1,000 mg PO BID 90 days omeprazole 20 mg PO DAILY 30 days tadalafil (Cialis) 5 mg PO DAILY 7 days tamsulosin 0.4 mg PO DAILY 90 days triamcinolone acetonide 0.1% 1 appl topical DAILY 30 days Tobacco use date assessed: 12/19/24 Dental Screening Dental Screen Date: 12/19/24 Did you have a dental visit in the last 12 months?: No Did you have a dental problem in the last 6 months where you did not have access to dental care?: No Was dental information given to patient?: Patient has dentist HPI annual exam HPI Details Patient is a 59-year-old male here today for a routine annual physical. Patient has a past medical history significant for hypertension, type 2 diabetes, sensorineural hearing loss. Hypertension: Blood pressure appropriate today in office, he continues on lisinopril 10 mg with good effect. Advised to monitor blood pressure at Otherwise he denies any chest discomfort, dizziness, vision issues or headaches. Type 2 diabetes: Patient continues on metformin a 1000 b.i.d. and A1c is stable . Today's A1c is 6.4 .. BPH: Was started on tamsulosin most previous visit his nocturia has significantly improved. Again will check screening PSA on upcoming labs Colon cancer screening: Cologuard done in 2023 was negative. Vaccines: Up-to-date with COVID vaccine, tetanus vaccine, declines flu and pneumonia vaccines. [facility] Surgical History History of inguinal hernia repair Family History Father Lung cancer Mother No problems noted. Family/Other Arthritis Hypertension Brother No problems noted. Daughter No problems noted. Sister No problems noted. Social History Housing: House Alcohol intake: never Patient Tobacco Use Status: Never used Tobacco e-Cigarette/Vaping Use: Never Used Second Hand Smoke Exposure: No service: No Current occupational status: employed Current occupational exposures/hazards: No Cognitive needs: No Hearing needs: No Vision needs: No Questionnaire PHQ-9 Over the last 2 weeks, how often have you been bothered by any of the following problems? 1. Little interest or pleasure in doing things: not at all 2. Feeling down, depressed, or hopeless: not at all 3. Trouble falling or staying asleep, or sleeping too much: not at all 4. Feeling tired or having little energy: not at all 5. Poor appetite or overeating: not at all 6. Feeling bad about yourself - or that you are a failure or have let yourself or your family down: not at all 7. Trouble concentrating on things, such as reading the newspaper or watching television: not at all 8. Moving or speaking so slowly that other people could have noticed. Or the opposite - being so fidgety or restless that you have been moving around a lot more than usual: not at all 9. Thoughts that you would be better off or of hurting yourself in some way: not at all Total score: 0 Depression Screening Interpretation: Negative Depression Screening Done: Yes 31028 - PHQ-9 Billing: Yes Source: Developed by Drs. Naeem Mckeon, Hasmukh Krishna and colleagues, with an educational sarah from [employer]. Thrive Questionnaire Date Thrive assessed: 12/19/24 I am a: Patient What is your living situation today?: I have a steady place to live Within the past 12 months, did the food you bought not last and you didn't have the money to get more?: Never true Within the past 12 months, did you worry whether your food would run out before you got money to buy more?: Never true Do you have trouble paying for medicines?: No Do you have trouble getting transportation to medical appointments?: No Do you have trouble paying your heating and electricity bill?: No Do you have trouble taking care of your child, family member or friend?: No Do you have trouble with day-to-day activities such as bathing, preparing meals, shopping, managing finances, etc.?: No Are you currently unemployed and looking for a job?: No Are you interested in more education?: Yes Please select the resources that you would like help with: None Currently or been in a relationship where the following occur: No concerns reported THRIVE Score: 0 AUDIT C Alcohol Use Questionnaire (AUDIT-C) 1. How often do you have a drink containing alcohol?: Never Total Score: 0 KEL-7 AMB Questionnaire KEL-7 Date KEL - 7 assessed: 12/19/24 Feeling nervous, anxious, or on edge: 0 = Not at all Not being able to stop or control worryin = Not at all Worrying too much about different things: 0 = Not at all Trouble relaxin = Not at all Being so restless that it is hard to sit still: 0 = Not at all Becoming easily annoyed or irritable: 0 = Not at all Feeling afraid as if something awful might happen: 0 = Not at all Total KEL-7 score (0-4 normal; 5-9 mild; 10-14 moderate; 15-21 severe): 0 Source: Developed by Peace Reaves Kurt Kroenke and colleagues, with an educational sarah from [employer]. KEL-7 Assessment Billing KEL-7 Assessment Tool: KEL-7 Assessment 84391 Review of Systems Const Denies body aches, Denies chills, Denies excessive sweating, Denies fatigue, Denies fever(s) and Denies headache(s) Eyes Denies blurry vision ENT Denies dysphagia, Denies vertigo, Denies dizziness, Denies headache(s), Denies hearing loss and Denies tinnitus Card Denies chest pain, Denies chest pain with activity, Denies syncope, Denies irregular heart rhythm and Denies dyspnea Resp Denies chest congestion, Denies cough, Denies hemoptysis, Denies dyspnea and Denies wheezing GI Denies abdominal pain, Denies melena, Denies hematochezia, Denies coffee ground emesis, Denies dysphagia, Denies diarrhea, Denies nausea and Denies vomiting Denies difficulty urinating, Denies dysuria, Denies urinary frequency, Denies urinary hesitancy and Denies urinary urgency Musc Denies arthralgias, Denies limited range of motion, Denies muscle cramps and Denies muscle weakness Skin/Breast Denies rash and Denies skin ulcer Neuro Denies Abnormal speech present, Denies confusion, Denies vertigo, Denies dizziness, Denies syncope, Denies headache(s), Denies memory loss and Denies seizure-like activity Psych Denies anxiety, Denies confusion, Denies depression, Denies memory loss, Denies panic attacks and Denies paranoia Endo Denies excessive sweating, Denies fatigue, Denies flushing, Denies polydipsia and Denies polyuria Aller/Immun Denies wheezing Physical exam (Primary Care) Vital Signs: Last Vital Signs Pulse 70 12/19/24 15:52 BP 132/86 12/19/24 15:52 Pulse Ox 98 12/19/24 15:52 Oxygen Delivery Method Room Air 12/19/24 15:52 BMI result Body Mass Index 29.0 Tobacco/Smoking Status: Tobacco use Status Tobacco use date assessed 12/19/24 12/19/24 16:00 Patient Tobacco Use Status Never used Tobacco 12/19/24 15:50 Tobacco use type 01/13/22 15:12 e-Cigarette/Vaping Use Never Used 12/19/24 15:50 PHQ-9: PHQ-9 Score PHQ-9: Total score 0 12/19/24 16:11 Depression Screening Interpretation: Negative Thrive Assessment: Date of Thrive Assessment Date Thrive assessed 12/19/24 12/19/24 16:00 Currently or been in a relationship where the following occur: No concerns reported Const General: cooperative, comfortable, no acute distress, alert and awake; No confusion Orientation/consciousness: oriented to person, oriented to place, patient oriented x3 and No confusion HENMT Head: Yes normocephalic Ears: external ears normal and TM's normal bilaterally Face and sinus: No sinus tenderness Mouth: Normal oral and palatal mucosa present and tongue normal Teeth and gingiva: dentition normal and gingiva normal Throat: Yes posterior oropharynx normal, Yes tonsils normal and Yes uvula midline Eyes Conjunctivae: conjunctivae normal Sclerae: sclerae normal Pupils: Equal, round and reactive pupils present EOM: EOMs intact bilaterally Direct Ophthalmoscopy: No no photophobia Neck Neck: Yes no lymphadenopathy, No tender and Yes no JVD Thyroid: Thyroid normal Carotids: no bruits Chest Chest palpation & inspection: no tenderness Resp Effort & Inspection: normal respiratory effort, no audible wheezes, not labored and no stridor Auscultation: no crackles, no rales, no rhonchi and no wheezes Cardio Jugular venous distension: no JVD Rate: regular rate, not bradycardic and not tachycardic Rhythm: regular rhythm Bruits: no carotid bruits Peripheral pulses: Peripheral pulses 2+ throughout GI Inspection: Yes normal to inspection, No abdominal wall ecchymosis and No visible herniation Palpation (GI): Soft to palpation, nontender, no guarding, not rigid and No hepatosplenomegaly present Auscultation: normoactive bowel sounds General: Yes no CVA tenderness Back/Spine/Pelvis Back: no CVA tenderness and No back tenderness Cervical Spine: cervical ROM normal Thoracic/Lumbar Spine: thoracic and lumbar spine normal to inspection, straight leg raise negative bilaterally, No thoraco-lumbar ROM limited and No lumbar spinal tenderness Skin Lesions: no lesions Rashes: no rashes Wounds: no wounds Neuro General: oriented to person, oriented to place, patient oriented x3, CN's II-XI intact bilaterally and No confusion Cranial nerves: Yes Equal, round and reactive pupils present and Yes Normal accommodation reflex present Cognition (Neuro): normal cognition Speech: No Abnormal speech present Gait exam (Neuro): Normal gait present Motor exam (neuro): 5/5 motor strength present throughout Extrem Right upper extremity: full ROM; no cyanosis Left upper extremity: full ROM; no cyanosis Right lower extremity: no edema Left lower extremity: no edema Psych Appearance: grossly normal Mental Status: mental status grossly normal Affect: normal affect Attitude: cooperative Thought process: Normal thought process present Results AMB Hemoglobin A1c AMB Hemoglobin A1c 6.4 % Last Edit by MARINA Cr on 12/19/24 16:12 Results Reviewed Results Reviewed: Laboratory Last Values Hgb A1c (Clinic) 6.4 % (4.0-6.0) H 12/19/24 15:49 Coding Level of Care Code Est Pt Prev Care 40-64y(96029) Diagnoses Annual physical exam Z00.00 Type 2 diabetes mellitus without complication, without long-term current use of insulin E11.9 Diabetes mellitus complication status: without complication 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: without intermediate use BPH associated with nocturia N40.1; R35.1 Essential hypertension I10 Hypertension type: essential hypertension Additional Codes KEL-7 Assessment Billing - KEL-7 Assessment Tool: KEL-7 Assessment 89905 ([id number]) PHQ-9 - 96487 - PHQ-9 Billing: Yes ([id number]) Assessment & Plan Assessment & Plan (1) Annual physical exam: Code(s): Z00.00 - Encounter for general adult medical examination without abnormal findings Category: Medical Plan: As per HPI (2) DMII (diabetes mellitus, type 2): Code(s): E11.9 - Type 2 diabetes mellitus without complications Category: Medical Qualifiers: Diabetes mellitus complication status: without complication 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 Today's A1c is 6.4. Goal A1c is to remain below 6.5. (3) BPH associated with nocturia: Code(s): N40.1 - Benign prostatic hyperplasia with lower urinary tract symptoms; R35.1 - Nocturia Category: Medical Plan: Has been started on tamsulosin which has significantly improved his nocturia and urinary frequency. Will check his PSA (4) HTN (hypertension): Code(s): I10 - Essential (primary) hypertension Category: Medical Qualifiers: Hypertension type: essential hypertension Qualified Code(s): I10 - Essential (primary) hypertension Plan: Patient's blood pressure acceptable today in office. Will continue his current dose of lisinopril with goal blood pressure to remain below 140/90 Orders: Orders Microalbumin, Random (w Creat) 12/19/24 I10 - Essential (primary) hypertension Prostate Specific Antigen Scr 12/19/24 I10 - Essential (primary) hypertension, Z12.5 - Encounter for screening for malignant neoplasm of prostate Comprehensive [place]. Panel Fast 12/19/24 E11.9 - Type 2 diabetes mellitus without complications AMB Hemoglobin A1c 12/19/24 E11.9 - Type 2 diabetes mellitus without complications Complete Blood Count no Diff 12/19/24 E11.9 - Type 2 diabetes mellitus without complications Patient Instructions: Goal: A1c to remain below 6.5, goal LDL to be below 100, blood pressure to remain below 140/90 Barriers: Adherence to physical activity and healthy habits.
[2024-12-19 15:52] VITALS: BP 132/86; PULSE 70; O2SAT 98; BMI 29.0
--- OUTSIDE RECORDS SUMMARY | 2024-12-19 17:37 | XMS_ITS ---
Author Organization [facility] Address [address] [place] [id number] Care Team Providers Care Retail Training Manager Name Role Phone Anthony Ann Primary Care Provider Unavailab Naeem Govea Unavailable [phone] REASON FOR VISIT Pt no show Encounters Encounter Location Date Provider Diagnosis [facility] [address] [place] [id number] 03/29/2024 Naeem Meza PLAN OF TREATMENT No Information
--- OUTSIDE RECORDS SUMMARY | 2024-12-19 17:37 | XMS_ITS ---
Author Organization [facility] Address [address] [place] [address] Care Team Providers Care Larder Cook Name Role Phone Anthony Ann Primary Care Provider Unavailab Naeem Govea Unavailable [phone] REASON FOR VISIT new insurance? Encounters Encounter Location Date Provider Diagnosis [facility] [address] [place] [address] 03/01/2024 Naeem Meza PLAN OF TREATMENT No Information
--- OUTSIDE RECORDS SUMMARY | 2024-12-19 17:37 | XMS_ITS | Patient Health Record ---
Author Organization [facility] Address [address] [place] [phone] Care Team Providers Care Medical Coding Instructor Name Role Phone Anthony Ann Primary Care Provider Unavailab Naeem Govea Unavailable [phone] ALLERGIES Allergen (clinical drug ingredient) Drug/Non Drug Allergy documented on EMR Reaction Allergy Type Onset Date Status acetaminophen Tylenol Unknown Drug Allergy Act estella Sudafed Unknown Drug Allergy Active Dimetapp Cold/Allergy Unknown Drug Allergy Active REASON FOR REFERRAL No Information MEDICATIONS Medication SIG (Take, Route, Fr equency, Duration) Notes Start Date End Date Status metFORMIN HCl 750mg Active Motrin prn Active Lisinopril 5 MG 1 tablet Orally Once a day for 30 day(s) Active Suprep Bowel Prep 1 kit as directed Oral ly as directed for 1 dose 10/12/2013 Active SOCIAL HISTORY Sex Assigned At : Social History Observation Description Sex Assigned At Unknown PROBLEMS Problem Type ICD Code Onset Dates Problem Status W/U Status Risk SNOMED Code Notes Problem Colon cancer screening (V76.51) Active confirmed Colon cancer screening (385459353) Problem Encounter for long-term (current) use of other medications (V58.69) Active confirmed Long-term current use of drug therapy (260380462) Encounters Encounter Location Date Provider Diagnosis [facility] [address] [place] [phone] 03/29/2024 Naeem Meza [facility] [address] [place] [phone] 03/01/2024 Naeem Meza [facility] [address] [place] [phone] 03/29/2024 Naeem Meza PLAN OF TREATMENT Future Test Test Name Order Date COLONOSCOPY 10/12/2013 Insurance Providers Payer Name Payer Address Payer Phone Subscriber Number Group Number Insured Name Patient Relationship to Insured Coverage Start Date Coverage End Date [facility] [address] [facility] [place] [phone] [id number] MIKHAIL SIMON Self - patient is the insured MEDICAL (GENERAL) HISTORY Medical History History ICD Code Denies [place],CVA,Lung disease,renal disease NIDDM HTN-he should be on lisinopr [place] but apparently ran out of that-I did advise him to contact your office for a refill Surgical History Surgery Date(Month/Year) hernia repair
--- OUTSIDE RECORDS SUMMARY | 2024-12-19 17:37 | XMS_ITS ---
Author Organization [facility] Address [address] [place] [phone] Care Team Providers Care Utility Service Worker Name Role Phone Anthony Ann Primary Care Provider Unavailab Naeem Govea Unavailable [phone] REASON FOR VISIT Patient presents today for a COLON SCREENING Encounters Encounter Location Date Provider Diagnosis [facility] [address] [place] [address] 03/29/2024 Naeem Meza PLAN OF TREATMENT No Information
== END 2024-12-19 16:10 | disposition home or self-care (01) ==
PROVIDERS: PCP Physician Assistant; Visit Provider Physician Assistant
DX: E11.9 Type 2 diabetes mellitus without complications (principal)

== ENCOUNTER → 2024-12-19 15:46 | Outpatient (BNVA) | payer OTHER, SELFPAY | PROVIDERS: PCP Physician Assistant; Visit Provider Physician Assistant | DX: Z00.00 Encounter for general adult medical examination without abnormal findings (principal); E11.9 Type 2 diabetes mellitus without complications; I10 Essential (primary) hypertension; N40.1 Benign prostatic hyperplasia with lower urinary tract symptoms; R35.1 Nocturia; R35.0 Frequency of micturition; Z79.84 Long term (current) use of oral hypoglycemic drugs; Z79.899 Other long term (current) drug therapy | CPT/HCPCS: 83036; 96127 ==

== ENCOUNTER 2024-12-29 13:34 | Outpatient (REF) | payer OTHER, SELFPAY ==
[2024-12-29 14:41] LABS: Hematocrit 43.5 % (42.0-52.0); Hemoglobin 14.7 g/dl (14.0-18.0); Mean Corpuscular HGB Conc 33.8 g/dl (31.0-36.0); Mean Corpuscular Hemoglobin 29.1 pg (27.0-33.0); Mean Platelet Volume 10.9 fL (9.4-12.4); Platelet Count 289 X10*3/uL (160-400); Red Blood Count 5.06 X10*6/uL (4.60-5.80); Red Cell Distribution Width 13.5 % (11.0-16.0); White Blood Count 7.3 X10*3/uL (4.8-10.8)
[2024-12-29 14:54] LABS: Appearance Urine Clear; Color Urine Yellow; Glucose Urine UA Negative (Negative); Leukocyte Esterase Urine Negative (Negative); Nitrite Urine Negative (Negative); Urine Blood Negative (Negative); Urine Ketones Negative (Negative); Urine Protein Negative (Neg-Trace)
[2024-12-29 15:17] LABS: Alanine Aminotransferase 37 U/L (0-40); Albumin Level 4.1 g/dL (3.5-5.0); Anion Gap 11 (12-20); Aspartate Amino Transferase 31 U/L (5-37); Bilirubin Total 0.7 mg/dL (0.0-1.0); Blood Urea Nitrogen 17 mg/dL (9-16); Calcium 9.5 mg/dL (8.4-10.2); Carbon Dioxide 26 mmol/L (22-29); Chloride 106 mmol/L (96-108); Estimated Glomerular Filt Rate > 60; Glucose Fasting 110 mg/dL (60-99); Potassium 4.2 mmol/L (3.3-5.1); Sodium 139 mmol/L (135-145); Total Protein 7.9 g/dL (6.5-8.0)
[2024-12-29 15:48] LABS: Creatinine Urine 157.86 mg/dL; Microalbum/Creatinine Ratio Ur 3.1 ug/mg cr (<30)
[2024-12-29 16:24] LABS: Alkaline Phosphatase 78 U/L (39-117)
[2024-12-29 17:18] LABS: Prostate Specific Antigen Scr 3.24 ng/mL (<0.05-4.0)
== END 2024-12-29 13:35 | disposition home or self-care (01) ==
LOC: HO.LAB 13:34
PROVIDERS: PCP Physician Assistant; Visit Provider Physician Assistant
DX: R35.0 Frequency of micturition (principal); Z12.5 Encounter for screening for malignant neoplasm of prostate; R30.0 Dysuria; E11.9 Type 2 diabetes mellitus without complications; I10 Essential (primary) hypertension
CPT/HCPCS: 36415; 80053; 81003; 82043; 82570; 84153; 85027

== ENCOUNTER 2025-02-12 13:59 | Outpatient (AMB) | payer OTHER, SELFPAY ==
[2025-02-12 14:00] VITALS: BP 152/92; PULSE 80; TEMP 36.3; O2SAT 99; BMI 28.4
--- NOTE | 2025-02-12 14:00 | A.OFFPC_ITS ---
Vital Signs 3 02/12/25 14:00 Height 5 ft 8 in Weight 187 lb BMI 28.4 BP 152/92 H Blood Pressure Location Lt brachial Position Sitting Pulse 80 Pulse Source Pulse Oximeter Temp 97.3 F Temp Source Temporal Artery Scan Pulse Oximetry (%) 99 Oxygen Delivery Method Room Air Intake Visit Reasons: stomch issues Intake Note: The patient is here for an ongoing stomach issue with nausea for the past month. They report that every time they eat, they experience discomfort, heartburn, and a decreased appetite. Community Association Manager Required: Yes Community Association Manager Language: Systems Spec Name: used tablet- Accompanied by: Self / Same As Patient Allergies acetaminophen [From Tylenol] Allergy (Severe, Verified 02/12/25 14:19) RASH,DIZZINESS aspirin [Aspirin] Allergy (Intermediate, Verified 02/12/25 14:19) RASH dextromethorphan [From NyQuil] Allergy (Unknown, Verified 02/12/25 14:19) Unknown doxylamine [From NyQuil] Allergy (Unknown, Verified 02/12/25 14:19) Unknown pseudoephedrine [From SUDAFED] Allergy (Unknown, Verified 02/12/25 14:19) UNKNOWN MEDICATION DYES Allergy (Unknown, Uncoded 02/12/25 14:19) Unknown Yellow dye Adverse Reaction (Intermediate, Uncoded 02/12/25 14:19) Rash Medication List - Last Reconciled 02/12/25 by Anthony Ann PA-C cholecalciferol (vitamin D3) (Vitamin D3) 25 mcg PO DAILY diclofenac sodium 1% (Arthritis Pain (diclofenac)) 2 grams topical QID PRN ibuprofen 600 mg PO TID PRN 10 days ketoconazole 2% 1 appl topical DAILY 30 days lisinopril 10 mg PO DAILY 90 days metformin 1,000 mg PO BID 90 days omeprazole 20 mg PO DAILY 30 days tadalafil (Cialis) 5 mg PO DAILY 7 days tamsulosin 0.4 mg PO DAILY 90 days triamcinolone acetonide 0.1% 1 appl topical DAILY 30 days Tobacco use date assessed: 12/19/24 Dental Screening Dental Screen Date: 12/19/24 HPI stomch issues 2 HPI0 Details Patient is a 59-year-old male here today for problem visit. He reports over the last 2 months having epigastric discomfort and low appetite. He does report using omeprazole though has not got a new script since the summer. He denies any vomiting, diarrhea or constipation. He denies any fevers or chills. He has not lost any significant amount of weight since last office visit. He is worried about his continued epigastric discomfort in pain and is interested in further evaluation. [facility] Surgical History History of inguinal hernia repair Family History Father Lung cancer Mother No problems noted. Family/Other Arthritis Hypertension Brother No problems noted. Daughter No problems noted. Sister No problems noted. Social History Housing: House Alcohol intake: never Patient Tobacco Use Status: Never used Tobacco e-Cigarette/Vaping Use: Never Used Second Hand Smoke Exposure: No service: No Current occupational status: employed Current occupational exposures/hazards: No Cognitive needs: No Hearing needs: No Vision needs: No Questionnaire Thrive Questionnaire Date Thrive assessed: 12/19/24 I am a: Patient What is your living situation today?: I have a steady place to live Within the past 12 months, did the food you bought not last and you didn't have the money to get more?: Never true Within the past 12 months, did you worry whether your food would run out before you got money to buy more?: Never true Do you have trouble paying for medicines?: No Do you have trouble getting transportation to medical appointments?: No Do you have trouble paying your heating and electricity bill?: No Do you have trouble taking care of your child, family member or friend?: No Do you have trouble with day-to-day activities such as bathing, preparing meals, shopping, managing finances, etc.?: No Are you currently unemployed and looking for a job?: No Are you interested in more education?: Yes Please select the resources that you would like help with: None Currently or been in a relationship where the following occur: No concerns reported THRIVE Score: 0 KEL-7 AMB Questionnaire KEL-7 Date KEL - 7 assessed: 12/19/24 Source: Developed by Drs. Naeem Mckeon, Peace Priest, Hasmukh Veras and colleagues, with an educational sarah from [employer]. Review of Systems Const Denies headache(s) Eyes Denies loss of vision ENT Denies vertigo, Denies dizziness, Denies headache(s) and Denies sore throat Card Denies chest pain, Denies leg edema and Denies lightheadedness Resp Denies cough, Denies hemoptysis and Denies wheezing GI Denies abdominal pain, Denies melena, Denies constipation, Denies diarrhea and Denies vomiting Denies dysuria, Denies urinary frequency and Denies urinary urgency Musc Denies arthralgias, Denies joint swelling, Denies numbness and Denies tingling Neuro Denies Abnormal speech present, Denies behavioral changes, Denies vertigo, Denies dizziness, Denies headache(s), Denies loss of vision, Denies memory loss, Denies numbness and Denies tingling Psych Denies anxiety, Denies behavioral changes, Denies depression, Denies memory loss and Denies panic attacks Kd/Lymph Denies easy bleeding and Denies easy bruising Aller/Immun Denies wheezing Physical exam (Primary Care) Vital Signs: Last Vital Signs Temp 97.3 F 02/12/25 14:00 Pulse 80 02/12/25 14:00 BP 152/92 H 02/12/25 14:00 Pulse Ox 99 02/12/25 14:00 Oxygen Delivery Method Room Air 02/12/25 14:00 BMI result Body Mass Index 28.4 Tobacco/Smoking Status: Tobacco use Status Tobacco use date assessed 12/19/24 02/12/25 14:01 Patient Tobacco Use Status Never used Tobacco 02/12/25 14:01 Tobacco use type 01/13/22 15:12 e-Cigarette/Vaping Use Never Used 02/12/25 14:01 Thrive Assessment: Date of Thrive Assessment Date Thrive assessed 12/19/24 02/12/25 14:01 Currently or been in a relationship where the following occur: No concerns reported Const General: healthy appearing, no acute distress, alert and awake Nutritional Appearance: well nourished Orientation/consciousness: oriented to person, oriented to place and oriented to time HENMT Ears: TM's normal bilaterally General nose exam: Normal nasal mucous membranes and turbinates present Eyes Conjunctivae: conjunctivae normal Sclerae: sclerae normal Pupils: Equal, round and reactive pupils present Neck Neck: Yes no lymphadenopathy and Yes no JVD Thyroid: Thyroid normal Carotids: no bruits Resp Effort & Inspection: normal respiratory effort and not tachypneic Auscultation: no crackles, no rales, no rhonchi and no wheezes Cardio Rate: regular rate Rhythm: regular rhythm Heart sounds: no murmurs and normal S1 and S2 GI Palpation (GI): Soft to palpation, Tenderness to palpation present (GI) in the epigastrum, no hepatomegaly and no splenomegaly Auscultation: normal bowel sounds Abdomen image: 2 1. MILD TENDERNESS TO PALPATION IN THE UPPER EPIGASTRIC ABDOMINAL REGION Skin General skin exam: no rashes or lesions noted and dry skin Neuro General: oriented to person, oriented to place and oriented to time Cranial nerves: Yes Equal, round and reactive pupils present Speech: No Abnormal speech present Gait exam (Neuro): Normal gait present Motor exam (neuro): no tremor noted Extrem Right upper extremity: full ROM Left upper extremity: full ROM Right lower extremity: full ROM; no edema Left lower extremity: full ROM; no edema Psych Mental Status: mental status grossly normal Speech and movement: Normal speech and movement present Affect: normal affect Attitude: cooperative Thought process: Normal thought process present Coding Level of Care Code Est Pt Level 3 (43762) Diagnoses Epigastric abdominal pain R10.13 Assessment & Plan Assessment & Plan (1) Epigastric abdominal pain: Code(s): R10.13 - Epigastric pain Category: Medical Plan: Patient's signs and symptoms concerning for gastritis. Will supply patient with liquid Carafate to use b.i.d.. Will consider alternative PPI. Will send for baseline labs including lipase and stool study to evaluate for H pylori infection. Will refer to Gastroenterology to eventually do endoscopy for evaluation of peptic ulcer disease. Orders: Orders 2 US abdomen limited 02/12/25 R10.13 - Epigastric pain H pylori Ag Stool 02/12/25 R10.13 - Epigastric pain Lipase 02/12/25 R10.13 - Epigastric pain Complete Blood Count no Diff 02/12/25 R10.13 - Epigastric pain Basic Metabolic Panel 02/12/25 R10.13 - Epigastric pain Referrals 2 Gastroenterology Referral R10.13 - Epigastric pain Medications: New 2 sucralfate (Carafate) 10 mL PO BID 600 mL 1RF 30 days R10.13 - Epigastric pain
--- OUTSIDE RECORDS SUMMARY | 2025-02-12 16:27 | XMS_ITS ---
Author Organization [facility] Address [address] [place] [address] Care Team Providers Care Turret Punch Operator Name Role Phone Anthony Ann Primary Care Provider Unavailab Naeem Govea Unavailable [phone] REASON FOR VISIT Pt no show Encounters Encounter Location Date Provider Diagnosis [facility] [address] [place] [phone] 03/29/2024 Naeem Meza Plan Of Treatment No Information Progress Notes * MIKHAIL SIMONDOB:1965 (58 yo M)Acc No.[id number]:03/29/2024 Patient:?ALFREDJOURDANMIKHAIL :1965???Age:58 Y???Sex:Male Address:[address] [facility], [place], [address] * true * Date:? Generated for Anushka gurrola/Geo/eTransmitting on:?02/12/2025 04:27 PM EDT
--- OUTSIDE RECORDS SUMMARY | 2025-02-12 16:28 | XMS_ITS ---
Author Organization [facility] Address [address] [place] [address] Care Team Providers Care Mathematics Faculty Member Name Role Phone Anthony Ann Primary Care Provider Unavailab Naeem Govea Unavailable [phone] REASON FOR VISIT new insurance? Encounters Encounter Location Date Provider Diagnosis [facility] [address] [place] [phone] 03/01/2024 Naeem Meza Plan Of Treatment No Information Progress Notes * MIKHAIL SIMONDOB:1965 (58 yo M)Acc No.[id number]:03/01/2024 Patient:?ALFRED MIKHAIL :1965???Age:58 Y???Sex:Male Address:[address] [facility], [place], [address] * true * Date:? Generated for Anushka gurrola/Geo/eTransmitting on:?02/12/2025 04:28 PM EDT
--- OUTSIDE RECORDS SUMMARY | 2025-02-12 16:28 | XMS_ITS | Patient Health Record ---
Author Organization [facility] Address [address] [place] [address] Care Team Providers Care Home Theater Specialist Name Role Phone Anthony Ann Primary Care Provider Unavailab Naeem Govea Unavailable [phone] Allergies Allergen (clinical drug ingredient) Drug/Non Drug Allergy documented on EMR Reaction Allergy Type Onset Date Status acetaminophen Tylenol Unknown Drug Allergy Act estella Sudafed Unknown Drug Allergy Active Dimetapp Cold/Allergy Unknown Drug Allergy Active Reason For Referral No Information Medications Medication SIG (Take, Route, Fr equency, Duration) Notes Start Date End Date Status metFORMIN HCl 750mg Active Motrin prn Active Lisinopril 5 MG 1 tablet Orally Once a day for 30 day(s) Active Suprep Bowel Prep 1 kit as directed Oral ly as directed for 1 dose 10/12/2013 Active Problems Problem Type SNOMED Code ICD Code Onset Dates Problem Status W/U Status Risk Notes Problem Long-term current use of drug therapy (719322281) Encounter for long-term (current) use of other medications (V58.69) Active confirmed Problem Colon cancer screening (469229065) Colon cancer screening (V76.51) Active confirmed Encounters Encounter Location Date Provider Diagnosis [facility] [address] [place] [phone] 03/01/2024 Naeem Meza [facility] [address] [place] [phone] 03/29/2024 Naeem Meza Plan Of Treatment Future Test Test Name Order Date COLONOSCOPY 10/12/2013 Insurance Providers Payer Name Payer Address Payer Phone Subscriber Number Group Number Insured Name Patient Relationship to Insured Coverage Start Date Coverage End Date [facility] [address] [place] [phone] [id number] MIKHAIL SIMON Self - patient is the insured Medical (General) History Medical History History ICD Code Denies [place],CVA,Lung disease,renal disease NIDDM HTN-he should be on lisinopr il but apparently ran out of that-I did advise him to contact your office for a refill Surgical History Surgery Date(Month/Year) hernia repair
--- OUTSIDE RECORDS SUMMARY | 2025-02-12 16:28 | XMS_ITS ---
Author Organization [facility] Address [address] [place] [phone] Care Team Providers Care Mud Trucker Name Role Phone Anthony Ann Primary Care Provider Unavailab Naeem Govea Unavailable [phone] REASON FOR VISIT Patient presents today for a COLON SCREENING Encounters Encounter Location Date Provider Diagnosis [facility] [address] [place] [phone] 03/29/2024 Naeem Meza Plan Of Treatment No Information Progress Notes * MIKHAIL SIMONDOB:1965 (59 yo M)Acc No.[id number]:03/29/2024 Progress Notes Patient:?MIKHAIL SIMON Provider:?Naeem Meza MD :1965???Age:58 Y???Sex:Male Fantasma e:03/29/2024 Address:[address] [place], [place] [id number] Pcp:Anthony Ann Subjective: * Chief Complaints: * ???1. Patient presents today for a COLON SCREENING. * Medical History:? Objective: * Vitals:? Assessment: Plan: * Treatment: * * The named appointment provid er may or may not be the originator of this progress note, and it is not deemed complete until electronically signed by the appointment provider. Sign off status: Pending * Provider:?Naeem Meza MD Date:? 024 Generated for Anushka gurrola/Geo/eTniralismitting on:?02/12/2025 04:27 PM EDT
== END 2025-02-12 15:15 | disposition home or self-care (01) ==
LOC: HO.HMCH 14:00
PROVIDERS: PCP Physician Assistant; Visit Provider Physician Assistant
DX: R10.13 Epigastric pain (principal)

== ENCOUNTER 2025-03-30 08:52 | Outpatient (REF) | payer OTHER, SELFPAY ==
--- NOTE | ~2025-03-30 | US_ITS ---
EXAMINATION: US ABDOMEN HISTORY: R10.13 - Epigastric pain TECHNIQUE: Real-time grayscale ultrasound imaging of the abdomen was performed and images were reviewed. COMPARISON: There are no prior studies for comparison. FINDINGS: Liver: The right lobe of the liver measures 15.1 cm in size. The left lobe of the liver measures 6.1 cm in size. The liver demonstrates increased echotexture, consistent with steatosis. No focal mass or intrahepatic biliary ductal dilatation is identified. There is normal hepatopedal flow in the portal vein. Gallbladder and biliary tree: The gallbladder is unremarkable, without evidence of calculi, wall thickening, or pericholecystic fluid. There is no sonographic Dawkins sign. The common bile duct is normal in caliber measuring 5 mm. Kidneys: The right kidney measures 10.7 cm in length. The left kidney measures 10.7 cm in length. The kidneys are unremarkable, without evidence of masses, hydronephrosis, or calculi. Pancreas: The pancreatic head, neck, and body are unremarkable. The pancreatic tail is obscured by bowel gas. Spleen: The spleen is not identified. Abdominal aorta and inferior vena cava: The visualized portions of the abdominal aorta and inferior vena cava are normal in caliber. There is no free fluid in the abdomen. US/US abdomen complete IMPRESSION: Hepatic steatosis. The spleen is not identified. Otherwise unremarkable abdominal ultrasound. Electronically signed by: Naeem Carrasco MD 03/30/2025 10:34 AM EDT
== END 2025-03-30 08:53 | disposition home or self-care (01) ==
LOC: HO.US 08:52
PROVIDERS: PCP Physician Assistant; Visit Provider Physician Assistant
DX: R10.13 Epigastric pain (principal)
CPT/HCPCS: 76700

== ENCOUNTER → 2025-03-30 08:56 | Outpatient (BNV) | payer OTHER, SELFPAY | PROVIDERS: PCP Physician Assistant; Visit Provider Radiology Diagnostic Radiology | DX: K76.0 Fatty (change of) liver, not elsewhere classified (principal) | CPT/HCPCS: 76700 ==

== ENCOUNTER 2025-06-19 15:43 | Outpatient (AMB) | payer OTHER, SELFPAY ==
--- OUTSIDE RECORDS SUMMARY | 2024-03-29 10:20 | XMS_ITS ---
Author Organization [facility] Address [address] [place] [address] Care Team Providers Care Cook Helper Juice Name Role Phone Anthony Ann Primary Care Provider Unavailab Naeem Govea Unavailable [phone] REASON FOR VISIT Patient presents today for a COLON SCREENING Encounters Encounter Location Date Provider Diagnosis [facility] [address] [place] [phone] 03/29/2024 Naeem Meza Plan Of Treatment No Information Progress Notes * MIKHAIL SIMONDOB:1965 (59 yo M)Acc No.[id number]:03/29/2024 Progress Notes Patient: MIKHAIL RUIZ Provider: Ann Meza MD :1965 A ge:58 Y S ex:Male Date:03/29/2024 Address:[address] [place], [place] [id number] Pcp:Anthony Ann Subjective: * Chief Complaints: * [...] Pending * Provider: Ann Meza MD Date: 03/29/2024 Generated for Anushka gurrola/Geo/Haleyitting on: 06/19/2025 04:30 PM EDT
--- NOTE | 2025-06-19 16:02 | A.OFFPC_ITS ---
Vital Signs 06/19/25 16:03 Height 5 ft 8 in Weight 183 lb 4 oz BMI 27.9 BP 110/70 Blood Pressure Location Lt brachial Position Sitting Pulse 83 Pulse Source Pulse Oximeter Temp 97.3 F Temp Source Temporal Artery Scan Pulse Oximetry (%) 97 Oxygen Delivery Method Room Air Intake Visit Reasons: f/u DMII/ HTN Intake Note: Patient is here to follow up on HTN, DMII. Content Producer Required: Yes Content Producer Language: Upper Sorbian Information Interpreted: non-clinical & clinical Arts Administrator: Not Required per policy Accompanied by: Self / Same As Patient Allergies acetaminophen (From Tylenol) Allergy (Severe, Verified 06/19/25 16:14) RASH,DIZZINESS aspirin (Aspirin) Allergy (Intermediate, Verified 06/19/25 16:14) RASH dextromethorphan (From NyQuil) Allergy (Unknown, Verified 06/19/25 16:14) Unknown doxylamine (From NyQuil) Allergy (Unknown, Verified 06/19/25 16:14) Unknown pseudoephedrine (From SUDAFED) Allergy (Unknown, Verified 06/19/25 16:14) UNKNOWN MEDICATION DYES Allergy (Unknown, Uncoded 06/19/25 16:14) Unknown Yellow dye Adverse Reaction (Intermediate, Uncoded 06/19/25 16:14) Rash Medication List - Last Reconciled 06/19/25 by Anthony Ann PA-C cholecalciferol (vitamin D3) (Vitamin D3) 25 mcg PO DAILY diclofenac sodium 1% (Arthritis Pain (diclofenac)) 2 grams topical QID PRN famotidine 20 mg PO BEDTIME 30 days ibuprofen 600 mg PO TID PRN 10 days ketoconazole 2% 1 appl topical DAILY 30 days lisinopril 10 mg PO DAILY 90 days metformin 1,000 mg PO BID 90 days sucralfate (Carafate) 10 mL PO BID 30 days tadalafil (Cialis) 5 mg PO DAILY 7 days tamsulosin 0.4 mg PO DAILY 90 days triamcinolone acetonide 0.1% 1 appl topical DAILY 30 days Tobacco use date assessed: 06/19/25 Dental Screening Dental Screen Date: 12/19/24 HPI f/u DMII/ HTN HPI Details Patient is a 59-year-old male here today for a follow-up visit Patient has a past medical history significant for hypertension, type 2 diabetes, sensorineural hearing loss, GERD. Concern--> today patient is requesting citizen evaluation disability form to be filled out though patient does not have any intellectual or learning disabilities. He does have significant hearing deficit and is is unable to read or write Spanish. I EXPLAINED TO HIM IN DETAIL THAT HE DOES NOT HAVE A DISABILITY THAT QUALIFIES TO BE EXEMPT FROM [employer] CITIZENS EXAM THOUGH PATIENT DOES NOT SEEM TO UNDERSTAND. FORM WAS FILLED OUT TO THE BEST OF MY ABILITY EXPLAINING HE HAS DIFFICULTY WITH HEARING AND IS NOT ABLE TO READ AND WRITE IN EGYPTIAN THOUGH DOES NOT HAVE A DOCUMENTED INTELLECTUAL OR LEARNING DISABILITY. Hypertension: Blood pressure appropriate today in office, he continues on lisinopril 10 mg with good effect. Advised to monitor blood pressure at Otherwise he denies any chest discomfort, dizziness, vision issues or headaches. Type 2 diabetes: Patient continues on metformin a 1000 b.i.d. and A1c is stable . Today's A1c is 6.8 .. BPH: Was started on tamsulosin most previous visit his nocturia has significantly improved. Again will check screening PSA on upcoming labs [facility] Surgical History History of inguinal hernia repair Family History Father Lung cancer Mother No problems noted. Family/Other Arthritis Hypertension Brother No problems noted. Daughter No problems noted. Sister No problems noted. Social History Housing: House Alcohol intake: never Patient Tobacco Use Status: Never used Tobacco e-Cigarette/Vaping Use: Never Used Second Hand Smoke Exposure: No service: No Current occupational status: employed Current occupational exposures/hazards: No Cognitive needs: No Hearing needs: No Vision needs: No Questionnaire Thrive Questionnaire Date Thrive assessed: 12/19/24 I am a: Patient What is your living situation today?: I have a steady place to live Within the past 12 months, did the food you bought not last and you didn't have the money to get more?: Never true Within the past 12 months, did you worry whether your food would run out before you got money to buy more?: Never true Do you have trouble paying for medicines?: No Do you have trouble getting transportation to medical appointments?: No Do you have trouble paying your heating and electricity bill?: No Do you have trouble taking care of your child, family member or friend?: No Do you have trouble with day-to-day activities such as bathing, preparing meals, shopping, managing finances, etc.?: No Are you currently unemployed and looking for a job?: No Are you interested in more education?: Yes Please select the resources that you would like help with: None Currently or been in a relationship where the following occur: No concerns reported THRIVE Score: 0 KEL-7 AMB Questionnaire KEL-7 Date KEL - 7 assessed: 12/19/24 Source: Developed by Drs. Naeem Mckeon, Peace Priest, Hasmukh Veras and colleagues, with an educational sarah from [employer]. Review of Systems Const Denies headache(s) Eyes Denies loss of vision ENT Denies vertigo, Denies dizziness, Denies headache(s) and Denies sore throat Card Denies chest pain, Denies leg edema and Denies lightheadedness Resp Denies cough, Denies hemoptysis and Denies wheezing GI Denies abdominal pain, Denies melena, Denies constipation, Denies diarrhea and Denies vomiting Denies dysuria, Denies urinary frequency and Denies urinary urgency Musc Denies arthralgias, Denies joint swelling, Denies numbness and Denies tingling Neuro Denies Abnormal speech present, Denies behavioral changes, Denies vertigo, Denies dizziness, Denies headache(s), Denies loss of vision, Denies memory loss, Denies numbness and Denies tingling Psych Denies anxiety, Denies behavioral changes, Denies depression, Denies memory loss and Denies panic attacks Kd/Lymph Denies easy bleeding and Denies easy bruising Aller/Immun Denies wheezing Physical exam (Primary Care) Vital Signs: Last Vital Signs Temp 97.3 F 06/19/25 16:03 Pulse 83 06/19/25 16:03 BP 110/70 06/19/25 16:03 Pulse Ox 97 06/19/25 16:03 Oxygen Delivery Method Room Air 06/19/25 16:03 BMI result Body Mass Index 27.9 Tobacco/Smoking Status: Tobacco use Status Tobacco use date assessed 06/19/25 06/19/25 16:08 Patient Tobacco Use Status Never used Tobacco 06/19/25 16:08 Tobacco use type 01/13/22 15:12 e-Cigarette/Vaping Use Never Used 06/19/25 16:08 Thrive Assessment: Date of Thrive Assessment Date Thrive assessed 12/19/24 06/19/25 16:08 Currently or been in a relationship where the following occur: No concerns reported Const General: healthy appearing, no acute distress, alert and awake Nutritional Appearance: well nourished Orientation/consciousness: oriented to person, oriented to place and oriented to time HENMT Ears: TM's normal bilaterally General nose exam: Normal nasal mucous membranes and turbinates present Eyes Conjunctivae: conjunctivae normal Sclerae: sclerae normal Pupils: Equal, round and reactive pupils present Neck Neck: Yes no lymphadenopathy and Yes no JVD Thyroid: Thyroid normal Carotids: no bruits Resp Effort & Inspection: normal respiratory effort and not tachypneic Auscultation: no crackles, no rales, no rhonchi and no wheezes Cardio Rate: regular rate Rhythm: regular rhythm Heart sounds: no murmurs and normal S1 and S2 GI Palpation (GI): Soft to palpation, nontender, no hepatomegaly and no splenomegaly Auscultation: normal bowel sounds Skin General skin exam: no rashes or lesions noted and dry skin Neuro General: oriented to person, oriented to place and oriented to time Cranial nerves: Yes Equal, round and reactive pupils present Speech: No Abnormal speech present Gait exam (Neuro): Normal gait present Motor exam (neuro): no tremor noted Extrem Right upper extremity: full ROM Left upper extremity: full ROM Right lower extremity: full ROM; no edema Left lower extremity: full ROM; no edema Psych Mental Status: mental status grossly normal Speech and movement: Normal speech and movement present Affect: normal affect Attitude: cooperative Thought process: Normal thought process present Results AMB Hemoglobin A1c AMB Hemoglobin A1c 6.8 % Last Edit by MARINA Manzanares on 06/19/25 16:23 Results Reviewed Results Reviewed: Laboratory Last Values Hgb A1c (Clinic) 6.8 % (4.0-6.0) H 06/19/25 16:02 Coding Level of Care Code Est Pt Level 4 (20210) Diagnoses Type 2 diabetes mellitus without complication, without long-term current use of insulin E11.9 Diabetes mellitus complication status: without complication Diabetes mellitus intermediate accountant insulin use: without intermediate accountant use Essential hypertension I10 Hypertension type: essential hypertension EKL (generalized anxiety disorder) F41.1 Assessment & Plan Assessment & Plan (1) DMII (diabetes mellitus, type 2): Code(s): E11.9 - Type 2 diabetes mellitus without complications Category: Medical Qualifiers: Diabetes mellitus complication status: without complication Diabetes mellitus intermediate accountant insulin use: without snf use Qualified Code(s): E11.9 - Type 2 diabetes mellitus without complications Plan: Patient's type 2 diabetes well controlled with current dose of metformin. Today's A1c is 6.8. Goal A1c is to remain below 7.0. (2) HTN (hypertension): Code(s): I10 - Essential (primary) hypertension Category: Medical Qualifiers: Hypertension type: essential hypertension Qualified Code(s): I10 - Essential (primary) hypertension Plan: Patient's blood pressure acceptable today in office. Will continue his current dose of lisinopril with goal blood pressure to remain below 140/90 (3) KEL (generalized anxiety disorder): Code(s): F41.1 - Generalized anxiety disorder Category: Medical Plan: Patient has a history of anxiety though does not taking medication for at this time. He had in his psychiatric crisis when his mother a few years ago Orders: Orders AMB Hemoglobin A1c 06/19/25 E11.9 - Type 2 diabetes mellitus without complications
[2025-06-19 16:03] VITALS: BP 110/70; PULSE 83; TEMP 36.3; O2SAT 97; BMI 27.9
== END 2025-06-19 17:13 | disposition home or self-care (01) ==
LOC: HO.HMCH 15:44
PROVIDERS: PCP Physician Assistant; Visit Provider Physician Assistant
DX: E11.9 Type 2 diabetes mellitus without complications (principal); I10 Essential (primary) hypertension; F41.1 Generalized anxiety disorder

== ENCOUNTER → 2025-06-19 15:43 | Outpatient (BNVA) | payer OTHER, SELFPAY | PROVIDERS: PCP Physician Assistant; Visit Provider Physician Assistant | DX: I10 Essential (primary) hypertension (principal); E11.9 Type 2 diabetes mellitus without complications; K21.9 Gastro-esophageal reflux disease without esophagitis; F41.1 Generalized anxiety disorder | CPT/HCPCS: 83036 ==

== ENCOUNTER 2025-08-11 13:21 | Outpatient (AMB) | payer OTHER, SELFPAY ==
--- OUTSIDE RECORDS SUMMARY | 2024-03-29 10:20 | XMS_ITS ---
Author Organization [facility] Address [address] [place] [phone] Care Team Providers Care Heel Dipper Name Role Phone Anthony Ann Primary Care Provider Unavailab Naeem Govea Unavailable [phone] REASON FOR VISIT Patient presents today for a COLON SCREENING Encounters Encounter Location Date Provider Diagnosis [facility] [address] [place] [phone] 03/29/2024 Naeem Meza Plan Of Treatment No Information Progress Notes * MIKHAIL SIMONDOB:1965 (60 yo M)Acc No.[id number]:03/29/2024 Progress Notes Patient: MIKHAIL RUIZ Provider: Ann Meza MD :1965 A ge:58 Y S ex:Male Date:03/29/2024 Address:[address] [place], [place] [id number] Pcp:Anthony Ann Subjective: * Chief Complaints: * [...] MD Date: 0 03/29/2024 Generated for Anushka gurrola/Geo/Haleyitting on: 0 08/11/2025 01:23 PM EDT
--- OUTSIDE RECORDS SUMMARY | 2025-08-11 13:23 | XMS_ITS | Clinical Summary ---
Author Organization [employer] Address [address] [facility] [address] [facility] [place] [address] Care Team Providers [facility] Name Role Phone Unavailable Primary Care Provider Unavailabl e Encounters Date Type Department Care Team Description 07/18/2025 Telephone [facility] MEDICINE [address] [place] [address] Rick Gill MD new pt from Last 3 Months Social History Tobacco Use Types Packs/Day Years Used Date Smoking Tobacco: Never Assessed Sex and Gender Information Value Date Recorded Sex Assigned at Male 07/18/2025 11:37 AM EDT Legal Sex Male 11:37 AM EDT Gender Identity Not on file Sexual Orientation Not on file Plan of Treatment Health Maintenance Due Date Last Done Comments CT Colonography 1963 Colonoscopy 1963 Colorectal Cancer Screening 1963 Depression Screening 1963 FIT DNA/Cologuard 1963 FIT 1963 FOBT 1963 HIV Screening 1963 Lipid Panel 1963 SDOH Screening 1963 Sigmoidoscopy 1963 Disability Screening 1963 Alcohol/Substance Use Screening 1975 Tobacco Screening 1975 Hepatitis C Screening 1981 DTaP/Tdap/Td Vaccines (1 - Tdap) 1982 Pneumococcal Vaccine: 50+ Ye ars (1 of 1 - PCV) 2013 Zoster Vaccines (1 of 2) 2013 COVID-19 Vaccine ( - 2023-2 5 season) 2025 Influenza Vaccine (#1) 2025 RSV Patients and Pa tients Aged 60 years or older (1 - 1-dose 75+ series) 2038 HIB Vaccines Aged Out No longer eligi ble based on patient's age to complete this topic HPV Vaccines Aged Out No longer eligi ble based on patient's age to complete this topic Hepatitis A Vaccines Aged Out No long er eligible based on patient's age to complete this topic Hepatitis B Vaccines Aged Out No long er eligible based on patient's age to complete this topic IPV Vaccines Aged Out No longer eligi ble based on patient's age to complete this topic Meningococcal B Vaccine Aged Out No l onger eligible based on patient's age to complete this topic Meningococcal Vaccine Aged Out No landry josé luis eligible based on patient's age to complete this topic RSV under 20 months Aged Out No longe r eligible based on patient's age to complete this topic Rotavirus Vaccines Aged Out No longer eligible based on patient's age to complete this topic Insurance , [address] [place] [address]
--- OUTSIDE RECORDS SUMMARY | 2025-08-11 13:24 | XMS_ITS | Patient Health Record ---
Author Organization [facility] Address [address] [place] [address] Care Team Providers Care Procurement Buyer Name Role Phone SethCarmen deleons Primary Care Provider UnavailNaeem Reyes Unavailable [phone] Allergies Allergen (clinical drug ingredient) Drug/Non Drug [...] Problem Long-term current use of drug therapy ([id number]) Encounter for long-term (current) use of other medications (V58.69) Active confirmed Problem Colon cancer screening ([id number]) Colon cancer screening (V76.51) Active confirmed Plan Of Treatment Future Test Test Name Order Date COLONOSCOPY 10/12/2013 Insurance Providers Payer Name Payer Address Payer Phone Subscriber Number Group Number Insured Name Patient Relationship to Insured Coverage Start Date Coverage End Date [facility] [address] [place] [phone] [id number] MIKHAIL SIMON Self - patient is the insured Medical (General) History Medical History History ICD Code Denies CO,CVA,Lung disease,renal disease NIDDM HTN-he should be on lisinopr il but apparently ran out of that-I did advise him to contact your office for a refill Surgical History Surgery Date(Month/Year) hernia repair
[2025-08-11 13:47] VITALS: BP 128/90; PULSE 63; RESP 15; TEMP 37.1; O2SAT 96; BMI 27.4
--- NOTE | 2025-08-11 13:47 | MHC.OFFWIV ---
Intake Vital Signs 08/11/25 13:47 Height 5 ft 8 in Weight 180 lb BMI 27.4 BP 128/90 H Blood Pressure Location Lt brachial Position Sitting Respiration 15 Pulse 63 Pulse Source Pulse Oximeter Temp 98.8 F Temp Source Oral Pulse Oximetry (%) 96 Oxygen Delivery Method Room Air Intake Visit Reasons: EP-Lt leg pain Intake Note: Pt is here today c/o Lt leg into ankle pain with spasms since 5days: No injury noted Patient Tobacco Use Status: Never used Tobacco Allergies acetaminophen (From Tylenol) Allergy (Severe, Verified 08/11/25 13:48) RASH,DIZZINESS aspirin (Aspirin) Allergy (Intermediate, Verified 08/11/25 13:48) RASH dextromethorphan (From NyQuil) Allergy (Unknown, Verified 08/11/25 13:48) Unknown doxylamine (From NyQuil) Allergy (Unknown, Verified 08/11/25 13:48) Unknown pseudoephedrine (From SUDAFED) Allergy (Unknown, Verified 08/11/25 13:48) UNKNOWN MEDICATION DYES Allergy (Unknown, Uncoded 08/11/25 13:48) Unknown Yellow dye Adverse Reaction (Intermediate, Uncoded 08/11/25 13:48) Rash HPI HPI Comments History of Present Illness Details This is a 60-year-old male presenting for evaluation of left leg pain. Patient states since Wednesday he has had pain extending from his left hip down to his left ankle that he describes as a tightness. Patient denies any injury or trauma preceding the onset of his symptoms and denies having any weakness in the left lower extremity, low back pain, urinary incontinence or difficulty ambulating. Patient has taken Advil only without relief of his discomfort however is unaware of the dosing or frequency. Patient is seen utilizing a tobacco hanger. [facility] Surgical History History of inguinal hernia repair Family History Father Lung cancer Mother No problems noted. Family/Other Arthritis Hypertension Brother No problems noted. Daughter No problems noted. Sister No problems noted. Social History Housing: House Alcohol intake: never Patient Tobacco Use Status: Never used Tobacco e-Cigarette/Vaping Use: Never Used Second Hand Smoke Exposure: No service: No Current occupational status: employed Current occupational exposures/hazards: No Cognitive needs: No Hearing needs: No Vision needs: No Review of Systems Const All systems reviewed & are unremarkable except as noted in HPI and below Reports no additional complaints, Denies body aches, Denies chills, Denies fatigue and Denies fever(s) Denies urinary incontinence and Denies urinary urgency Musc Denies back pain, Denies muscle cramps and Reports radiating pain into limb (LLE) Skin/Breast Reports system reviewed and no additional complaints, except as documented Neuro Reports no additional complaints Psych Reports no additional complaints Endo Reports no additional complaints and Denies fatigue Kd/Lymph Reports no additional complaints Physical Exam Vital Signs: Last Vital Signs Temp 98.8 F 08/11/25 13:47 Pulse 63 08/11/25 13:47 Resp 15 08/11/25 13:47 BP 128/90 H 08/11/25 13:47 Pulse Ox 96 08/11/25 13:47 Oxygen Delivery Method Room Air 08/11/25 13:47 BMI result Body Mass Index 27.4 Const General: cooperative, healthy appearing, comfortable, no acute distress, well developed, alert, awake and Physically active; No acute distress or ill appearing Nutritional Appearance: well nourished Orientation/consciousness: patient oriented x3 Limitations: no limitations General: Yes no CVA tenderness Back/Spine/Pelvis Back: no CVA tenderness Thoracic/Lumbar Spine: thoracic and lumbar spine normal to inspection, thoraco-lumbar ROM normal, No pain with thoraco-lumbar ROM, No thoracic spinal tenderness, No lumbar spinal tenderness and straight leg raise positive (left SLR elicits pain in the left lateral thigh and low back) Sacroiliac joints: bilaterally nontender Skin General skin exam: no rashes or lesions noted Neuro General: patient oriented x3 Extrem Left lower extremity: normal to inspection, full ROM (passive ROM left hip, left knee and left ankle intact), hip/thigh Details: normal to inspection; no tenderness, no swelling and no deformity, knee Details: normal to inspection and normal ROM; no tenderness, no swelling, no deformity and no unusual warmth, lower leg Details: no edema and other (no left calf tenderness); no tenderness and no localized swelling and ankle Details: normal to inspection and no edema; no tenderness and no swelling; no edema and joint enlargement noted Psych Appearance: grossly normal Mental Status: mental status grossly normal Insight: Good insight present (Psych) Judgement: Good judgement present (Psych) Assessment & Plan Assessment & Plan (1) Leg pain, left: Comment: Patient's history may be consistent with a lumbar radiculopathy or sciatic pain however the patient has no sciatic tenderness and no pain upon examination of the left lower extremity. Straight leg raise does elicit pain in the left lateral thigh and minimally in the lumbar region. Patient has intact sensation throughout the left lower extremity including the plantar surfaces of the foot. Given that there is no history of trauma or injury, imaging is deferred at this time. Patient will be treated with an anti-inflammatory and muscle relaxant for initial management. Code(s): M79.605 - Pain in left leg Plan: Naprosyn 500 mg b.i.d. (aspirin allergies noted however patient is tolerating Advil without any reported adverse effect) and methocarbamol q.i.d. PRN. Patient is instructed to follow up his primary care provider within 10-14 days if his symptoms do not improve. Medications: New naproxen (Naprosyn) 500 mg PO BID 20 tabs 0RF methocarbamol 500 mg PO TID 20 tabs 0RF Refilled triamcinolone acetonide 0.1% 1 appl topical DAILY 80 grams 1RF 30 days B35.9 - Dermatophytosis, unspecified Coding Level of Care Code Est Pt Level 3 (84966) Diagnoses Leg pain, left M79.605 Time Spent (min) 20
== END 2025-08-11 14:36 | disposition home or self-care (01) ==
LOC: HO.HMCWIC 13:21
PROVIDERS: PCP Physician Assistant; Visit Provider Physician Assistant
DX: M79.605 Pain in left leg (principal)

== ENCOUNTER 2025-09-27 15:36 | Outpatient (AMB) | payer OTHER, SELFPAY ==
--- OUTSIDE RECORDS SUMMARY | 2024-03-29 10:20 | XMS_ITS ---
Author Organization [facility] Address [address] [place] [phone] Care Team Providers Care Tube Handler Name Role Phone Anthony Ann Primary Care Provider Unavailab Naeem Govea Unavailable [phone] REASON FOR VISIT Patient presents today for a COLON SCREENING Encounters Encounter Location Date Provider Diagnosis [facility] [address] [place] [phone] 03/29/2024 Naeem Meza Plan Of Treatment No Information Progress Notes * MIHKAIL SIMONDOB:1965 (60 yo M)Acc No.[id number]:03/29/2024 Progress Notes Patient: MIKHAIL RUIZ Provider: Ann Meza MD :1965 A ge:58 Y S ex:Male Date:03/29/2024 Address:[address] [place], [place] [id number] Pcp:Anthony Ann Subjective: * Chief Complaints: * 1 . Patient presents today for a COLON SCREENING. * Medical History: Objective: * Vitals: Assessment: Plan: * Treatment: * * The named appointment provid er may or may not be the originator of this progress note, and it is not deemed complete until electronically signed by the appointment provider. Sign off status: Pending * Provider: Ann Meza MD Date: 0 03/29/2024 Generated for Anushka gurrola/Geo/Darion on: 06:04 PM EDT
[2025-09-27 15:39] VITALS: BP 110/80; PULSE 105; O2SAT 96; BMI 27.4
--- NOTE | 2025-09-27 15:39 | MHC.PC.OV ---
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 Required: No Accompanied by: Self / Same As Patient Allergies acetaminophen (From Tylenol) Allergy (Severe, Verified 09/27/25 15:54) RASH,DIZZINESS aspirin (Aspirin) Allergy (Intermediate, Verified 09/27/25 15:54) RASH dextromethorphan (From NyQuil) Allergy (Unknown, Verified 09/27/25 15:54) Unknown doxylamine (From NyQuil) Allergy (Unknown, Verified 09/27/25 15:54) Unknown pseudoephedrine (From SUDAFED) Allergy (Unknown, Verified 09/27/25 15:54) UNKNOWN MEDICATION DYES Allergy (Unknown, Uncoded 09/27/25 15:54) Unknown Yellow dye Adverse Reaction (Intermediate, Uncoded 09/27/25 15:54) Rash Medication List - Last Reconciled 09/27/25 by Anthony Ann PA-C cholecalciferol (vitamin D3) (Vitamin D3) 25 mcg PO DAILY diclofenac sodium 1% (Arthritis Pain (diclofenac)) 2 grams topical QID PRN ketoconazole 2% 1 appl topical DAILY 30 days lisinopril 10 mg PO DAILY 90 days metformin 1,000 mg PO BID 90 days methocarbamol 500 mg PO TID tadalafil (Cialis) 5 mg PO DAILY 7 days triamcinolone acetonide 0.1% 1 appl topical DAILY 30 days Tobacco use date assessed: 09/27/25 Dental Screening Dental Screen Date: 09/27/25 Did you have a dental visit in the last 12 months?: No Did you have a dental problem in the last 6 months where you did not have access to dental care?: No Was dental information given to patient?: No HPI 3 month f/u HPI Details Patient is a 60-year-old male here today for a follow-up visit Patient has a past medical history significant for hypertension, type 2 diabetes, sensorineural hearing loss, GERD. Hypertension: Blood pressure appropriate today in office, he continues on lisinopril 10 mg with good effect. Advised to monitor blood pressure at Otherwise he denies any chest discomfort, dizziness, vision issues or headaches. Type 2 diabetes: Patient continues on metformin a 1000 b.i.d. and A1c is stable . Today's A1c is 6.8 .. BPH: He reports his nocturia has improved, he is not taking tamsulosin at all anymore. Again will check screening PSA on upcoming labs Laboratory Tests 12/15/23 06/20/24 12/19/24 14:17 16:05 15:49 RBC Creatinine Fasting Glucose Hgb A1c (Clinic) 6.8 H 6.7 H 6.4 H PSA Screen Urine Microalbumin 12/29/24 12/29/24 06/19/25 13:54 13:58 16:02 RBC 5.06 Creatinine 0.99 Fasting Glucose 110 H Hgb A1c (Clinic) 6.8 H PSA Screen 3.24 Urine Microalbumin 5.0 PFSH Surgical History History of inguinal hernia repair Family History Father Lung cancer Mother No problems noted. Family/Other Arthritis Hypertension Brother No problems noted. Daughter No problems noted. Sister No problems noted. Social History Housing: House Alcohol intake: never Patient Tobacco Use Status: Never used Tobacco e-Cigarette/Vaping Use: Never Used Second Hand Smoke Exposure: No service: No Current occupational status: employed Current occupational exposures/hazards: No Cognitive needs: No Hearing needs: No Vision needs: No Questionnaire Thrive Questionnaire Date Thrive assessed: 12/19/24 I am a: Patient What is your living situation today?: I have a steady place to live Within the past 12 months, did the food you bought not last and you didn't have the money to get more?: Never true Within the past 12 months, did you worry whether your food would run out before you got money to buy more?: Never true Do you have trouble paying for medicines?: No Do you have trouble getting transportation to medical appointments?: No Do you have trouble paying your heating and electricity bill?: No Do you have trouble taking care of your child, family member or friend?: No Do you have trouble with day-to-day activities such as bathing, preparing meals, shopping, managing finances, etc.?: No Are you currently unemployed and looking for a job?: No Are you interested in more education?: Yes Please select the resources that you would like help with: None Currently or been in a relationship where the following occur: No concerns reported THRIVE Score: 0 AUDIT C Alcohol Use Questionnaire (AUDIT-C) 1. How often do you have a drink containing alcohol?: Never 3. How often do you have six or more drinks on one occasion?: Never Total Score: 0 KEL-7 AMB Questionnaire KEL-7 Date KEL - 7 assessed: 12/19/24 Source: Developed by Drs. Naeem Mckeon, Peace Priest, Hasmukh Veras and colleagues, with an educational sarah from [place] Review of Systems Const Denies headache(s) Eyes Denies loss of vision ENT Denies vertigo, Denies dizziness, Denies headache(s) and Denies sore throat Card Denies chest pain, Denies leg edema and Denies lightheadedness Resp Denies cough, Denies hemoptysis and Denies wheezing GI Denies abdominal pain, Denies melena, Denies constipation, Denies diarrhea and Denies vomiting Denies dysuria, Denies urinary frequency and Denies urinary urgency Musc Denies arthralgias, Denies joint swelling, Denies numbness and Denies tingling Neuro Denies Abnormal speech present, Denies behavioral changes, Denies vertigo, Denies dizziness, Denies headache(s), Denies loss of vision, Denies memory loss, Denies numbness and Denies tingling Psych Denies anxiety, Denies behavioral changes, Denies depression, Denies memory loss and Denies panic attacks Kd/Lymph Denies easy bleeding and Denies easy bruising Aller/Immun Denies wheezing Physical exam (Primary Care) Vital Signs: Last Vital Signs Pulse 105 H 09/27/25 15:39 BP 110/80 09/27/25 15:39 Pulse Ox 96 09/27/25 15:39 Oxygen Delivery Method Room Air 09/27/25 15:39 BMI result Body Mass Index 27.4 Tobacco/Smoking Status: Tobacco use Status Tobacco use date assessed 09/27/25 09/27/25 15:42 Patient Tobacco Use Status Never used Tobacco 09/27/25 15:42 Tobacco use type 01/13/22 15:12 e-Cigarette/Vaping Use Never Used 09/27/25 15:42 Thrive Assessment: Date of Thrive Assessment Date Thrive assessed 12/19/24 09/27/25 15:42 Currently or been in a relationship where the following occur: No concerns reported Const General: healthy appearing, no acute distress, alert and awake Nutritional Appearance: well nourished Orientation/consciousness: oriented to person, oriented to place and oriented to time HENMT Ears: TM's normal bilaterally General nose exam: Normal nasal mucous membranes and turbinates present Eyes Conjunctivae: conjunctivae normal Sclerae: sclerae normal Pupils: Equal, round and reactive pupils present Neck Neck: Yes no lymphadenopathy and Yes no JVD Thyroid: Thyroid normal Carotids: no bruits Resp Effort & Inspection: normal respiratory effort and not tachypneic Auscultation: no crackles, no rales, no rhonchi and no wheezes Cardio Rate: regular rate Rhythm: regular rhythm Heart sounds: no murmurs and normal S1 and S2 GI Palpation (GI): Soft to palpation, nontender, no hepatomegaly and no splenomegaly Auscultation: normal bowel sounds Skin General skin exam: no rashes or lesions noted and dry skin Neuro General: oriented to person, oriented to place and oriented to time Cranial nerves: Yes Equal, round and reactive pupils present Speech: No Abnormal speech present Gait exam (Neuro): Normal gait present Motor exam (neuro): no tremor noted Extrem Right upper extremity: full ROM Left upper extremity: full ROM Right lower extremity: full ROM; no edema Left lower extremity: full ROM; no edema Psych Mental Status: mental status grossly normal Speech and movement: Normal speech and movement present Affect: normal affect Attitude: cooperative Thought process: Normal thought process present Coding Level of Care Code Est Pt Level 4 (41909) Diagnoses Type 2 diabetes mellitus without complication, without long-term current use of insulin E11.9 Diabetes mellitus complication status: without complication 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: without dedicated intermodal truck driver use Essential hypertension I10 Hypertension type: essential hypertension KEL (generalized anxiety disorder) F41.1 Assessment & Plan Assessment & Plan (1) DMII (diabetes mellitus, type 2): Code(s): E11.9 - Type 2 diabetes mellitus without complications Category: Medical Qualifiers: Diabetes mellitus complication status: without complication Diabetes mellitus senior care insulin use: without senior care use Qualified Code(s): E11.9 - Type 2 diabetes mellitus without complications Plan: Patient's type 2 diabetes well controlled with current dose of metformin. Today's A1c is 6.8. Goal A1c is to remain below 7.0. (2) HTN (hypertension): Code(s): I10 - Essential (primary) hypertension Category: Medical Qualifiers: Hypertension type: essential hypertension Qualified Code(s): I10 - Essential (primary) hypertension Plan: Patient's blood pressure acceptable today in office. Will continue his current dose of lisinopril with goal blood pressure to remain below 140/90 (3) KEL (generalized anxiety disorder): Code(s): F41.1 - Generalized anxiety disorder Category: Medical Plan: Patient has a history of anxiety though does not taking medication for at this time. Of note He had in his psychiatric crisis when his mother a few years ago Orders: Orders Comprehensive [place]. Panel Fast 09/27/25 E11.9 - Type 2 diabetes mellitus without complications Complete Blood Count no Diff 09/27/25 E11.9 - Type 2 diabetes mellitus without complications Microalbumin, Random (w Creat) 09/27/25 E11.9 - Type 2 diabetes mellitus without complications Hemoglobin A1c 09/27/25 E11.9 - Type 2 diabetes mellitus without complications Prostate Specific Antigen Scr 09/27/25 E11.9 - Type 2 diabetes mellitus without complications, Z12.5 - Encounter for screening for malignant neoplasm of prostate Medications: Discontinued ibuprofen Discontinued Reason: Doctor's Order 600 mg PO TID 10 days PRN 30 tabs 0RF pain R51.9 - Headache, unspecified naproxen (Naprosyn) Discontinued Reason: Doctor's Order 500 mg PO BID 20 tabs 0RF tamsulosin Discontinued Reason: Doctor's Order 0.4 mg PO DAILY 90 days 90 caps 1RF N40.1 - Benign prostatic hyperplasia with lower urinary tract symptoms, R35.1 - Nocturia
--- OUTSIDE RECORDS SUMMARY | 2025-09-27 18:04 | XMS_ITS | Patient Health Record ---
Author Organization [facility] Address [address] [place] [address] Care Team Providers Care Dope House Operator Helper Name Role Phone Carmen Anns Primary Care Provider UnavailNaeem Reyes Unavailable [phone] Allergies Allergen (clinical drug ingredient) Drug/Non Drug [...] 5 MG 1 tablet Orally Once a day; Duration: 30 day(s) Active Suprep Bowel Prep 1 kit as directed Oral ly as directed; Duration: 1 dose 10/12/2013 Activ e Problems Problem Type SNOMED Code ICD Code Onset Dates Problem Status W/U Status Risk Notes Problem Long-term current use of drug therapy (657635555) Encounter for long-term (current) use of other medications (V58.69) Active confirmed Problem Colon cancer screening (731769090) Colon cancer screening (V76.51) Active confirmed Plan Of Treatment Future Test Test Name Order Date COLONOSCOPY 10/12/2013 Insurance Providers Payer Name Payer Address Payer Phone Subscriber Number Group Number Insured Name Patient Relationship to Insured Coverage Start Date Coverage End Date [facility] [address] [place] [phone] [id number] MIKHAIL SIMON Self - patient is the insured Medical (General) History Medical History History ICD Code Denies AK,CVA,Lung disease,renal disease NIDDM HTN-he should be on lisinopr il but apparently ran out of that-I did advise him to contact your office for a refill Surgical History Surgery Date(Month/Year) hernia repair
--- OUTSIDE RECORDS SUMMARY | 2025-09-27 18:04 | XMS_ITS | Clinical Summary ---
Author Organization [employer] Address [address] [facility] [address] [place] [address] Care Team Providers Care Director Of Business Systems Name Role Phone Unavailable Primary Care Provider Unavailabl e Encounters Date Type Department Care Team Description 08/27/2025 Telephone [facility] [address] [place] [address] [id number] Rick Gill MD 07/18/2025 Telephone [facility] [address] [place], [place] [phone] Rick Gill MD new pt from Last [...] Vaccines (1 of 2) 2013 COVID-19 Vaccine (1 - 2023-2 5 season) 2025 Influenza Vaccine [...] patient's age to complete this topic [place] [place] [address] , [address] [place] [address]
== END 2025-09-27 16:04 | disposition home or self-care (01) ==
LOC: HO.HMCH 15:37
PROVIDERS: PCP Physician Assistant; Visit Provider Physician Assistant
DX: E11.9 Type 2 diabetes mellitus without complications (principal); I10 Essential (primary) hypertension; F41.1 Generalized anxiety disorder